=== PATIENT | female | born 1975 | race Caucasian/White ===

== ENCOUNTER 2018-12-13 07:47 | Inpatient (IN) ==
[2018-12-13] MEDS ORDERED: Ondansetron 4 MG/2 ML VIAL IVP ONE (07:57)
[2018-12-13] MEDS ORDERED: 0.9 % Sodium Chloride 1,000 ML IVC ONE (07:57)
--- NOTE | 2018-12-13 07:58 | Emergency Department Note ---
Disposition Clinical Impression: Diabetic ketoacidosis associated with type 1 diabetes mellitus Disposition: Admitted As Inpatient Condition: Good General Adult HPI - General Chief complaint: ED Nausea/Vomiting/Diarrhea Stated complaint: vomiting,high blood sugar Time Seen by Provider: 12/13/18 07:54 Source: patient Limitations: no limitations - History of Present Illness Pain Scale: 0 - Related Data Home Medications Medication Instructions Recorded Confirmed ALPRAZolam [Xanax 1 MG Tablet] 1 mg PO TID PRN 12/13/18 12/13/18 Atorvastatin [Lipitor] 40 mg PO HS 12/13/18 12/13/18 BuPROPion XL (24 HR) [Wellbutrin 150 mg PO DAILY 12/13/18 12/13/18 XL] Citalopram [CeleXA] 40 mg PO HS 12/13/18 12/13/18 Gabapentin [Neurontin] 800 mg PO QID 12/13/18 12/13/18 Insulin ASPART [NovoLOG] 0 units CONT 12/13/18 12/13/18 Allergies Allergy/AdvReac Type Severity Reaction Status Date / Time No Known Allergies Allergy Verified 12/13/18 08:06 Past Medical History - Past Medical History Medical history: Reports: diabetes, hyperlipidemia Psychiatric history: Reports: anxiety, depression, panic disorder - Social History Smoking Status: Current every day smoker Smokeless Tobacco Status: No Alcohol use: Reports: none Drug use: Reports: none Physical Exam - General Limitations: no limitations General appearance: alert, appears intoxicated Course Vital Signs Temperature 97.6 F 12/13/18 07:50 Pulse Rate 114 12/13/18 07:50 Respiratory Rate 18 12/13/18 07:50 Blood Pressure 110/64 12/13/18 07:50 O2 Sat by Pulse Oximetry 97 12/13/18 07:50 Temperature 98.4 F 12/13/18 15:26 Pulse Rate 82 12/13/18 16:08 Respiratory Rate 18 12/13/18 16:08 Blood Pressure 113/69 12/13/18 16:08 O2 Sat by Pulse Oximetry 96 12/13/18 16:08 Oxygen Delivery Oxygen Delivery Room Air Medical Decision Making - Lab Data Result diagrams: 12/13/18 08:30 12/13/18 11:52 Lab Results 12/13/18 12/13/18 12/13/18 Range/Units 08:30 08:30 08:30 WBC 23.3 H (4.3-11.1) K/mcL RBC 4.54 (3.82-4.97) M/mcL Hgb 14.8 (11.5-15.4) g/dL Hct 43.8 (35.3-44.9) % MCV 96.5 (83.0-100.0) fL MCH 32.6 (28.0-33.3) pg MCHC 33.8 (31.6-35.5) g/dL RDW 14.4 (11.5-14.5) % Plt Count 241 (140-400) K/mcL MPV 9.3 L (9.4-12.4) fL Immature Gran % 1.0 (0-4) % Seg Neutrophils % 86.0 % Lymphocytes % 2.9 % Monocytes % 9.9 % Eosinophils % 0.0 % Basophils % 0.2 % Neutrophils # 20.1 H (1.6-8.9) K/mcL Lymphocytes # 0.7 (0.6-4.6) K/mcL Monocytes # 2.3 H (0.0-1.3) K/mcL Eosinophils # 0.0 (0.0-0.6) K/mcL Basophils # 0.0 (0.0-0.2) K/mcL VBG pH (7.32-7.42) pH Units VBG pCO2 (41-51) mmHg VBG pO2 (25-50) mmHg VBG HCO3 (21-27) mEq/L Sodium 127 L (136-145) mEq/L Potassium 4.4 (3.5-5.1) mEq/L Chloride 93 L (98-107) mEq/L Carbon Dioxide 13 L (23-29) mEq/L BUN 12 (6-20) mg/dL Creatinine 1.04 (0.60-1.20) mg/dL Est GFR ( Amer) > 60 (> 60) Est GFR (Non-Af Amer) 58 L (> 60) BUN/Creatinine Ratio 12 (6-26) Glucose 519 H* (70-105) mg/dL Calculated Osmolality 287 (280-300) Lactic Acid (0.5-2.2) mmol/L Calcium 9.1 (8.6-10.3) mg/dL Total Bilirubin 0.6 (0.3-1.0) mg/dL AST 25 (13-39) Units/L ALT 18 (7-52) Units/L Alkaline Phosphatase 101 (34-104) Units/L Serum Total Protein 7.3 (6.4-8.9) g/dL Albumin 4.0 (3.5-5.7) g/dL Globulin 3.3 (2.4-3.5) g/dL Albumin/Globulin Ratio 1.2 (1.1-2.2) Lipase 5 L (11-82) Units/L Beta-Hydroxybutyric Acd > 2.00 H (0.02-0.27) mmol/L Urine Color (Yellow) Urine Clarity (Clear) Urine pH (5.0-8.0) pH Units Ur Specific [place] (1.010-1.025) Urine Protein (Neg-Trace) mg/dL Urine Glucose (UA) (Normal) mg/dL Urine Ketones (Negative) mg/dL Urine Blood (Negative) Urine Nitrite (Negative) Urine Bilirubin (Negative) Urine Urobilinogen (Normal) mg/dL Ur Leukocyte Esterase (Negative) Urine Microscopic RBC (0-3) per hpf Urine Microscopic WBC Ur Squamous Epith Cells (None-Few) per lpf Urine Test (Negative) Urine Opiates Screen (Cqsgcj=905) ng/mL Ur Barbiturates Screen (Ncnswy=819) ng/mL Ur Phencyclidine Scrn (Cutoff=25) ng/mL Ur Amphetamines Screen (Dzznnc=7685) ng/mL U Benzodiazepines Scrn (Pieiqn=888) ng/mL Urine Cocaine Screen (Cutoff= 300) ng/mL U Marijuana (THC) Screen (Cutoff = 50) ng/mL Ur Drug Screen Interp 12/13/18 12/13/18 12/13/18 Range/Units 08:48 08:48 08:48 WBC (4.3-11.1) K/mcL RBC (3.82-4.97) M/mcL Hgb (11.5-15.4) g/dL Hct (35.3-44.9) % MCV (83.0-100.0) fL MCH (28.0-33.3) pg MCHC (31.6-35.5) g/dL RDW (11.5-14.5) % Plt Count (140-400) K/mcL MPV (9.4-12.4) fL Immature Gran % (0-4) % Seg Neutrophils % % Lymphocytes % % Monocytes % % Eosinophils % % Basophils % % Neutrophils # (1.6-8.9) K/mcL Lymphocytes # (0.6-4.6) K/mcL Monocytes # (0.0-1.3) K/mcL Eosinophils # (0.0-0.6) K/mcL Basophils # (0.0-0.2) K/mcL VBG pH (7.32-7.42) pH Units VBG pCO2 (41-51) mmHg VBG pO2 (25-50) mmHg VBG HCO3 (21-27) mEq/L Sodium (136-145) mEq/L Potassium (3.5-5.1) mEq/L Chloride (98-107) mEq/L Carbon Dioxide (23-29) mEq/L BUN (6-20) mg/dL Creatinine (0.60-1.20) mg/dL Est GFR ( Amer) (> 60) Est GFR (Non-Af Amer) (> 60) BUN/Creatinine Ratio (6-26) Glucose (70-105) mg/dL Calculated Osmolality (280-300) Lactic Acid (0.5-2.2) mmol/L Calcium (8.6-10.3) mg/dL Total Bilirubin (0.3-1.0) mg/dL AST (13-39) Units/L ALT (7-52) Units/L Alkaline Phosphatase (34-104) Units/L Serum Total Protein (6.4-8.9) g/dL Albumin (3.5-5.7) g/dL Globulin (2.4-3.5) g/dL Albumin/Globulin Ratio (1.1-2.2) Lipase (11-82) Units/L Beta-Hydroxybutyric Acd (0.02-0.27) mmol/L Urine Color Yellow (Yellow) Urine Clarity Clear (Clear) Urine pH 5.5 (5.0-8.0) pH Units Ur Specific [place] 1.026 H (1.010-1.025) Urine Protein 30 H (Neg-Trace) mg/dL Urine Glucose (UA) >=1000 H (Normal) mg/dL Urine Ketones >=160 H (Negative) mg/dL Urine Blood Large H (Negative) Urine Nitrite Negative (Negative) Urine Bilirubin Negative (Negative) Urine Urobilinogen Normal (Normal) mg/dL Ur Leukocyte Esterase Negative (Negative) Urine Microscopic RBC 15-30 H (0-3) per hpf Urine Microscopic WBC Test Not Performed Ur Squamous Epith Cells Few (None-Few) per lpf Urine Test Negative (Negative) Urine Opiates Screen Negative (Pxnxfr=057) ng/mL Ur Barbiturates Screen Negative (Vrkjjd=169) ng/mL Ur Phencyclidine Scrn Negative (Cutoff=25) ng/mL Ur Amphetamines Screen Negative (Voetsz=4183) ng/mL U Benzodiazepines Scrn Negative (Rmsbge=305) ng/mL Urine Cocaine Screen Negative (Cutoff= 300) ng/mL U Marijuana (THC) Screen Positive H (Cutoff = 50) ng/mL Ur Drug Screen Interp See Below 12/13/18 12/13/18 12/13/18 Range/Units 09:00 11:52 11:52 WBC (4.3-11.1) K/mcL RBC (3.82-4.97) M/mcL Hgb (11.5-15.4) g/dL Hct (35.3-44.9) % MCV (83.0-100.0) fL MCH (28.0-33.3) pg MCHC (31.6-35.5) g/dL RDW (11.5-14.5) % Plt Count (140-400) K/mcL MPV (9.4-12.4) fL Immature Gran % (0-4) % Seg Neutrophils % % Lymphocytes % % Monocytes % % Eosinophils % % Basophils % % Neutrophils # (1.6-8.9) K/mcL Lymphocytes # (0.6-4.6) K/mcL Monocytes # (0.0-1.3) K/mcL Eosinophils # (0.0-0.6) K/mcL Basophils # (0.0-0.2) K/mcL VBG pH 7.37 (7.32-7.42) pH Units VBG pCO2 24 L (41-51) mmHg VBG pO2 145 H (25-50) mmHg VBG HCO3 14 L (21-27) mEq/L Sodium 129 L (136-145) mEq/L Potassium 3.7 (3.5-5.1) mEq/L Chloride 102 (98-107) mEq/L Carbon Dioxide 15 L (23-29) mEq/L BUN 12 (6-20) mg/dL Creatinine 0.85 (0.60-1.20) mg/dL Est GFR ( Amer) > 60 (> 60) Est GFR (Non-Af Amer) > 60 (> 60) BUN/Creatinine Ratio 14 (6-26) Glucose 338 H (70-105) mg/dL Calculated Osmolality 281 (280-300) Lactic Acid 0.8 (0.5-2.2) mmol/L Calcium 7.8 L (8.6-10.3) mg/dL Total Bilirubin 0.3 (0.3-1.0) mg/dL AST 17 (13-39) Units/L ALT 15 (7-52) Units/L Alkaline Phosphatase 82 (34-104) Units/L Serum Total Protein 6.0 L (6.4-8.9) g/dL Albumin 3.3 L (3.5-5.7) g/dL Globulin 2.7 (2.4-3.5) g/dL Albumin/Globulin Ratio 1.2 (1.1-2.2) Lipase (11-82) Units/L Beta-Hydroxybutyric Acd (0.02-0.27) mmol/L Urine Color (Yellow) Urine Clarity (Clear) Urine pH (5.0-8.0) pH Units Ur Specific [place] (1.010-1.025) Urine Protein (Neg-Trace) mg/dL Urine Glucose (UA) (Normal) mg/dL Urine Ketones (Negative) mg/dL Urine Blood (Negative) Urine Nitrite (Negative) Urine Bilirubin (Negative) Urine Urobilinogen (Normal) mg/dL Ur Leukocyte Esterase (Negative) Urine Microscopic RBC (0-3) per hpf Urine Microscopic WBC Ur Squamous Epith Cells (None-Few) per lpf Urine Test (Negative) Urine Opiates Screen (Xqcgod=285) ng/mL Ur Barbiturates Screen (Dimial=770) ng/mL Ur Phencyclidine Scrn (Cutoff=25) ng/mL Ur Amphetamines Screen (Wojibn=7584) ng/mL U Benzodiazepines Scrn (Tkeoyv=932) ng/mL Urine Cocaine Screen (Cutoff= 300) ng/mL U Marijuana (THC) Screen (Cutoff = 50) ng/mL Ur Drug Screen Interp Critical Care Time Critical Care Time: Yes Total Critical Care Time: 30 Attestation: The high probability of a clinically significant, sudden or life threatening deterioration of the [] system(s) required my full and direct attention, intervention and personal management. The aggregate critical care time was [] minutes. This time is in addition to time spent performing reported procedures but includes the following: [] Data Review and interpretation [] Patient assessment and monitoring of vital signs [] Documentation [] Medication orders and management Attestation Statement - Attestation Attestation: I examined this patient and my medical decision-making was reviewed with the Resident Physician. I agree with the documented findings, disposition and treatment plan as described except to the extent set forth below. Edhu-go-ordu time provided Patient arrives complaining of nausea and vomiting for the past 2 days. She is a known type I diabetic with an insulin pump. Prehospital blood sugar was in the 400s. The patient denies having frequent bouts of DKA. She was able to ambulate to the treatment area and appears mildly uncomfortable upon arrival
--- NOTE | 2018-12-13 08:35 | Emergency Department Note ---
Disposition Clinical Impression: Diabetic ketoacidosis associated with type 1 diabetes mellitus Qualifiers: Diabetes mellitus complication detail: without coma Qualified Code(s): E10.10 - Type 1 diabetes mellitus with ketoacidosis without coma Disposition: Admitted As Inpatient Condition: Good Referrals: Trey Duenas MD [Primary Care Provider] - Forms: ED Satisfaction Letter General Adult HPI - General Chief complaint: ED Nausea/Vomiting/Diarrhea Stated complaint: vomiting,high blood sugar Time Seen by Provider: 12/13/18 07:54 Source: patient Limitations: no limitations Nursing Notes Reviewed: Yes Vital Signs Reviewed: Yes - History of Present Illness HPI Narrative: Patient's a 43-year-old female with history of type 1 diabetes on insulin pump who presents emergency department with complaints of nausea, vomiting and diarrhea. She states this is been ongoing for the past 3 days with nausea and vomiting and her diarrhea started this morning. She notes she has had upper respiratory congestion with intermittent cough for the past week. She notes increased urinary frequency. She otherwise denies any chest pain, shortness of breath, abdominal pain, hematuria, dysuria. Pain Scale: 0 - Related Data Allergies Allergy/AdvReac Type Severity Reaction Status Date / Time No Known Allergies Allergy Verified 12/13/18 08:06 All systems ED: reviewed and negative except as stated. Review of Systems: As Per HPI Past Medical History - Past Medical History Medical history: Reports: diabetes, hyperlipidemia Psychiatric history: Reports: anxiety, depression, panic disorder - Social History Smoking Status: Current every day smoker Smokeless Tobacco Status: No Alcohol use: Reports: none Drug use: Reports: none Physical Exam General: Conversant. No apparent distress. Follow commands. Appears stated age. Appears uncomfortable, not actively vomiting Neck: No JVD. Trachea midline. Neck supple. Eyes: PERRL. No scleral icterus. HENT: Normocephalic and atraumatic. Dry mucus membranes. Cardiovascular: Regular rate and rhythm. Normal S1 and S2. No murmurs appreciated. Normal capillary refill. Extremities well perfused with 2+ distal pulses bilaterally. No edema. Pulmonary: Normal and equal breath sounds bilaterally, anteriorly and posteriorly. No wheezes, rales, or rhonchi. Not in respiratory distress. Speaks in full sentences. Abdomen: Soft, nondistended, and tontender. No bruits or masses. No guarding. Neuro: Alert and oriented x3. No slurred speech. No focal deficits noted. Skin: No rashes noted on visualized skin. Musculoskeletal: No bony abnormalities visualized. Moves all extremities. Psych: Normal mood. Pleasant. Makes appropriate eye contact. - General Limitations: no limitations General appearance: alert, in no apparent distress Course Vital Signs Temperature 97.6 F 12/13/18 07:50 Pulse Rate 114 12/13/18 07:50 Respiratory Rate 18 12/13/18 07:50 Blood Pressure 110/64 12/13/18 07:50 O2 Sat by Pulse Oximetry 97 12/13/18 07:50 Temperature 97.6 F 12/13/18 07:50 Pulse Rate 92 12/13/18 13:09 Respiratory Rate 18 12/13/18 13:09 Blood Pressure 98/62 12/13/18 13:09 O2 Sat by Pulse Oximetry 97 12/13/18 13:09 Oxygen Delivery Oxygen Delivery Room Air Medical Decision Making - MDM Narrative Medical decision making narrative: 43-year-old female who presents the emergency department with nausea, vomiting and diarrhea. She is a type I diabetic. On initial assessment patient is nauseated and tachycardic. She appears dry. Laboratory was for DKA obtained. The patient has slight leukocytosis which is likely result of her vomiting. Otherwise her BMP shows glucose of 519, beta hydroxybutyrate greater than 2, chloride of 93, carbon dioxide of 13. She does have an anion gap of 21. Patient started on normal saline with 20 mEq potassium. 0.1 units per kilogram insulin drip initiated. Discussed findings with on-call hospitalist, Dr. Irving who agrees with plan for admission. Discussed case with on-call hospitalist. Patient agrees with and understands course of treatment plan including plan for admission. All questions answered. - Medical Records Medical records reviewed: Yes I reviewed the patient's medical records. - Lab Data Lab results reviewed: Yes I reviewed the patient's lab results. Result diagrams: 12/13/18 08:30 12/13/18 11:52 Lab Results 12/13/18 12/13/18 12/13/18 Range/Units 08:30 08:30 08:30 WBC 23.3 H (4.3-11.1) K/mcL RBC 4.54 (3.82-4.97) M/mcL Hgb 14.8 (11.5-15.4) g/dL Hct 43.8 (35.3-44.9) % MCV 96.5 (83.0-100.0) fL MCH 32.6 (28.0-33.3) pg MCHC 33.8 (31.6-35.5) g/dL RDW 14.4 (11.5-14.5) % Plt Count 241 (140-400) K/mcL MPV 9.3 L (9.4-12.4) fL Immature Gran % 1.0 (0-4) % Seg Neutrophils % 86.0 % Lymphocytes % 2.9 % Monocytes % 9.9 % Eosinophils % 0.0 % Basophils % 0.2 % Neutrophils # 20.1 H (1.6-8.9) K/mcL Lymphocytes # 0.7 (0.6-4.6) K/mcL Monocytes # 2.3 H (0.0-1.3) K/mcL Eosinophils # 0.0 (0.0-0.6) K/mcL Basophils # 0.0 (0.0-0.2) K/mcL VBG pH (7.32-7.42) pH Units VBG pCO2 (41-51) mmHg VBG pO2 (25-50) mmHg VBG HCO3 (21-27) mEq/L Sodium 127 L (136-145) mEq/L Potassium 4.4 (3.5-5.1) mEq/L Chloride 93 L (98-107) mEq/L Carbon Dioxide 13 L (23-29) mEq/L BUN 12 (6-20) mg/dL Creatinine 1.04 (0.60-1.20) mg/dL Est GFR ( Amer) > 60 (> 60) Est GFR (Non-Af Amer) 58 L (> 60) BUN/Creatinine Ratio 12 (6-26) Glucose 519 H* (70-105) mg/dL Calculated Osmolality 287 (280-300) Lactic Acid (0.5-2.2) mmol/L Calcium 9.1 (8.6-10.3) mg/dL Total Bilirubin 0.6 (0.3-1.0) mg/dL AST 25 (13-39) Units/L ALT 18 (7-52) Units/L Alkaline Phosphatase 101 (34-104) Units/L Serum Total Protein 7.3 (6.4-8.9) g/dL Albumin 4.0 (3.5-5.7) g/dL Globulin 3.3 (2.4-3.5) g/dL Albumin/Globulin Ratio 1.2 (1.1-2.2) Lipase 5 L (11-82) Units/L Beta-Hydroxybutyric Acd > 2.00 H (0.02-0.27) mmol/L Urine Color (Yellow) Urine Clarity (Clear) Urine pH (5.0-8.0) pH Units Ur Specific [place] (1.010-1.025) Urine Protein (Neg-Trace) mg/dL Urine Glucose (UA) (Normal) mg/dL Urine Ketones (Negative) mg/dL Urine Blood (Negative) Urine Nitrite (Negative) Urine Bilirubin (Negative) Urine Urobilinogen (Normal) mg/dL Ur Leukocyte Esterase (Negative) Urine Microscopic RBC (0-3) per hpf Urine Microscopic WBC Ur Squamous Epith Cells (None-Few) per lpf Urine Test (Negative) Urine Opiates Screen (Zhqocn=587) ng/mL Ur Barbiturates Screen (Sksads=880) ng/mL Ur Phencyclidine Scrn (Cutoff=25) ng/mL Ur Amphetamines Screen (Yafnhb=1207) ng/mL U Benzodiazepines Scrn (Ojaftr=501) ng/mL Urine Cocaine Screen (Cutoff= 300) ng/mL U Marijuana (THC) Screen (Cutoff = 50) ng/mL Ur Drug Screen Interp 12/13/18 12/13/18 12/13/18 Range/Units 08:48 08:48 08:48 WBC (4.3-11.1) K/mcL RBC (3.82-4.97) M/mcL Hgb (11.5-15.4) g/dL Hct (35.3-44.9) % MCV (83.0-100.0) fL MCH (28.0-33.3) pg MCHC (31.6-35.5) g/dL RDW (11.5-14.5) % Plt Count (140-400) K/mcL MPV (9.4-12.4) fL Immature Gran % (0-4) % Seg Neutrophils % % Lymphocytes % % Monocytes % % Eosinophils % % Basophils % % Neutrophils # (1.6-8.9) K/mcL Lymphocytes # (0.6-4.6) K/mcL Monocytes # (0.0-1.3) K/mcL Eosinophils # (0.0-0.6) K/mcL Basophils # (0.0-0.2) K/mcL VBG pH (7.32-7.42) pH Units VBG pCO2 (41-51) mmHg VBG pO2 (25-50) mmHg VBG HCO3 (21-27) mEq/L Sodium (136-145) mEq/L Potassium (3.5-5.1) mEq/L Chloride (98-107) mEq/L Carbon Dioxide (23-29) mEq/L BUN (6-20) mg/dL Creatinine (0.60-1.20) mg/dL Est GFR ( Amer) (> 60) Est GFR (Non-Af Amer) (> 60) BUN/Creatinine Ratio (6-26) Glucose (70-105) mg/dL Calculated Osmolality (280-300) Lactic Acid (0.5-2.2) mmol/L Calcium (8.6-10.3) mg/dL Total Bilirubin (0.3-1.0) mg/dL AST (13-39) Units/L ALT (7-52) Units/L Alkaline Phosphatase (34-104) Units/L Serum Total Protein (6.4-8.9) g/dL Albumin (3.5-5.7) g/dL Globulin (2.4-3.5) g/dL Albumin/Globulin Ratio (1.1-2.2) Lipase (11-82) Units/L Beta-Hydroxybutyric Acd (0.02-0.27) mmol/L Urine Color Yellow (Yellow) Urine Clarity Clear (Clear) Urine pH 5.5 (5.0-8.0) pH Units Ur Specific [place] 1.026 H (1.010-1.025) Urine Protein 30 H (Neg-Trace) mg/dL Urine Glucose (UA) >=1000 H (Normal) mg/dL Urine Ketones >=160 H (Negative) mg/dL Urine Blood Large H (Negative) Urine Nitrite Negative (Negative) Urine Bilirubin Negative (Negative) Urine Urobilinogen Normal (Normal) mg/dL Ur Leukocyte Esterase Negative (Negative) Urine Microscopic RBC 15-30 H (0-3) per hpf Urine Microscopic WBC Test Not Performed Ur Squamous Epith Cells Few (None-Few) per lpf Urine Test Negative (Negative) Urine Opiates Screen Negative (Gkxdcf=783) ng/mL Ur Barbiturates Screen Negative (Jkhsqs=417) ng/mL Ur Phencyclidine Scrn Negative (Cutoff=25) ng/mL Ur Amphetamines Screen Negative (Yddyav=5772) ng/mL U Benzodiazepines Scrn Negative (Onlkgh=010) ng/mL Urine Cocaine Screen Negative (Cutoff= 300) ng/mL U Marijuana (THC) Screen Positive H (Cutoff = 50) ng/mL Ur Drug Screen Interp See Below 12/13/18 12/13/18 12/13/18 Range/Units 09:00 11:52 11:52 WBC (4.3-11.1) K/mcL RBC (3.82-4.97) M/mcL Hgb (11.5-15.4) g/dL Hct (35.3-44.9) % MCV (83.0-100.0) fL MCH (28.0-33.3) pg MCHC (31.6-35.5) g/dL RDW (11.5-14.5) % Plt Count (140-400) K/mcL MPV (9.4-12.4) fL Immature Gran % (0-4) % Seg Neutrophils % % Lymphocytes % % Monocytes % % Eosinophils % % Basophils % % Neutrophils # (1.6-8.9) K/mcL Lymphocytes # (0.6-4.6) K/mcL Monocytes # (0.0-1.3) K/mcL Eosinophils # (0.0-0.6) K/mcL Basophils # (0.0-0.2) K/mcL VBG pH 7.37 (7.32-7.42) pH Units VBG pCO2 24 L (41-51) mmHg VBG pO2 145 H (25-50) mmHg VBG HCO3 14 L (21-27) mEq/L Sodium 129 L (136-145) mEq/L Potassium 3.7 (3.5-5.1) mEq/L Chloride 102 (98-107) mEq/L Carbon Dioxide 15 L (23-29) mEq/L BUN 12 (6-20) mg/dL Creatinine 0.85 (0.60-1.20) mg/dL Est GFR ( Amer) > 60 (> 60) Est GFR (Non-Af Amer) > 60 (> 60) BUN/Creatinine Ratio 14 (6-26) Glucose 338 H (70-105) mg/dL Calculated Osmolality 281 (280-300) Lactic Acid 0.8 (0.5-2.2) mmol/L Calcium 7.8 L (8.6-10.3) mg/dL Total Bilirubin 0.3 (0.3-1.0) mg/dL AST 17 (13-39) Units/L ALT 15 (7-52) Units/L Alkaline Phosphatase 82 (34-104) Units/L Serum Total Protein 6.0 L (6.4-8.9) g/dL Albumin 3.3 L (3.5-5.7) g/dL Globulin 2.7 (2.4-3.5) g/dL Albumin/Globulin Ratio 1.2 (1.1-2.2) Lipase (11-82) Units/L Beta-Hydroxybutyric Acd (0.02-0.27) mmol/L Urine Color (Yellow) Urine Clarity (Clear) Urine pH (5.0-8.0) pH Units Ur Specific [place] (1.010-1.025) Urine Protein (Neg-Trace) mg/dL Urine Glucose (UA) (Normal) mg/dL Urine Ketones (Negative) mg/dL Urine Blood (Negative) Urine Nitrite (Negative) Urine Bilirubin (Negative) Urine Urobilinogen (Normal) mg/dL Ur Leukocyte Esterase (Negative) Urine Microscopic RBC (0-3) per hpf Urine Microscopic WBC Ur Squamous Epith Cells (None-Few) per lpf Urine Test (Negative) Urine Opiates Screen (Jfyqho=926) ng/mL Ur Barbiturates Screen (Jvoaml=169) ng/mL Ur Phencyclidine Scrn (Cutoff=25) ng/mL Ur Amphetamines Screen (Qvchsz=7685) ng/mL U Benzodiazepines Scrn (Utqhtn=178) ng/mL Urine Cocaine Screen (Cutoff= 300) ng/mL U Marijuana (THC) Screen (Cutoff = 50) ng/mL Ur Drug Screen Interp - Radiology Data Radiology results reviewed: Yes I reviewed the patient's radiology results. Chest X-Ray 12/13/18 09:12 IMPRESSION: No acute cardiopulmonary findings. D/ / Arleen Cook MD / Arleen Cook MD Interpreting Provider: Arleen Cook MD
[2018-12-13 08:48] LABS: Basophils % 0.2 %; Hematocrit 43.8 % (35.3-44.9); Hemoglobin 14.8 g/dL (11.5-15.4); Lymphocytes # 0.7 K/mcL (0.6-4.6); Lymphocytes % 2.9 %; Mean Corpuscular HGB Conc 33.8 g/dL (31.6-35.5); Mean Corpuscular Hemoglobin 32.6 pg (28.0-33.3); Mean Corpuscular Volume 96.5 fL (83.0-100.0); Mean Platelet Volume 9.3 fL (9.4-12.4); Monocytes # 2.3 K/mcL (0.0-1.3); Monocytes % 9.9 %; Neutrophils # 20.1 K/mcL (1.6-8.9); Platelet Count 241 K/mcL (140-400); Red Blood Count 4.54 M/mcL (3.82-4.97); Red Cell Distribution Width 14.4 % (11.5-14.5)
[2018-12-13 09:03] LABS: VBG HCO3 14 mEq/L (21-27); VBG PCO2 24 mmHg (41-51); VBG PH 7.37 pH Units (7.32-7.42); VBG PO2 145 mmHg (25-50)
[2018-12-13 09:17] LABS: Alanine Aminotransferase 18 Units/L (7-52); Albumin/Globulin Ratio 1.2 (1.1-2.2); Alkaline Phosphatase 101 Units/L (34-104); Aspartate Amino Transferase 25 Units/L (13-39); BUN/Creatinine Ratio 12 (6-26); Bilirubin,Total 0.6 mg/dL (0.3-1.0); Blood Urea Nitrogen 12 mg/dL (6-20); Calcium 9.1 mg/dL (8.6-10.3); Carbon Dioxide 13 mEq/L (23-29); Chloride 93 mEq/L (98-107); Globulin 3.3 g/dL (2.4-3.5); Glucose 519 mg/dL (70-105); Lipase 5 Units/L (11-82); Osmolality,Calculated 287 (280-300); Potassium 4.4 mEq/L (3.5-5.1); Sodium 127 mEq/L (136-145); Total Protein 7.3 g/dL (6.4-8.9); eGFR For Non-African Americans 58 (> 60)
[2018-12-13 09:18] LABS: Bilirubin,Urine Negative (Negative); Blood,Urine Large (Negative); Clarity,Urine Clear (Clear); Color,Urine Yellow (Yellow); Glucose,Urine (UA) >=1000 mg/dL (Normal); Ketones,Urine >=160 mg/dL (Negative); Leukocyte Esterase,Urine Negative (Negative); Nitrite,Urine Negative (Negative); PH,Urine 5.5 pH Units (5.0-8.0); Protein,Urine 30 mg/dL (Neg-Trace); Specific Gravity,Urine 1.026 (1.010-1.025); Urobilinogen,Urine Normal (Normal)
[2018-12-13] MEDS ORDERED: *HR* Dextrose 50 % in Water (Syg) 50 ML SYRINGE IVP PRN ×3 (09:23→20:56)
[2018-12-13] MEDS ORDERED: 0.9 % Sodium Chloride 1,000 ML IVC STA (09:26)
[2018-12-13] MEDS ORDERED: 0.9 % Sodium Chloride w KCl 20 MEQ/1,000 ML MLS IVC SCH (09:30)
[2018-12-13] MEDS ORDERED: Insulin Human Regular 100 UNIT in 0.9 % Sodium Chloride 100 ML IVC SCH (09:30)
[2018-12-13 09:33] LABS: RBC,Urine 15-30 per hpf (0-3); Squamous Epithelial Cell,Urine Few per lpf (None-Few)
[2018-12-13] MEDS ORDERED: Ondansetron 4 MG/2 ML VIAL IVP PRN (10:28)
[2018-12-13] MEDS ORDERED: OXYCODONE Oral CONC 10 MG/0.5 ML ORAL.SYG SL PRN (10:28)
[2018-12-13] MEDS ORDERED: Naloxone 0.4 MG/ML INJ IVP PRN (10:28)
[2018-12-13] MEDS ORDERED: Insulin Regular, Human 100 UNIT/ML IV PRN (10:32)
--- NOTE | 2018-12-13 10:54 | Internal Med History&Physical ---
Date of Encounter: 12/13/18 Time of Encounter: 10:51 Internal Medicine - H&P: HPI Chief complaint: nausea Plans for Post Hospital Care: Home History of present illness: Ms. Mark is a 43 year old female with PMH type 1 diabetes presented to [facility] on 12/13/18 with complaints of neausea. She was found to be in DKA and was hospitalized for further work-up and treatment. Information obtained from chart review and patient report. Patient says she has been nauseated over the last 2-3 days. Denied ABD pain. Had 2 episodes non-bloody loose stool day of arrival. No aggravating or alleviating factors. Says she is unable to keep anything down. Reports comlnaice with insulin pump and pump is functioning correctly. Denied sick contacts. Treated for URI approx 3-4 weeks ago. Past Med Surg Social Fam HX - Past Medical History Medical history: diabetes, hyperlipidemia Psychiatric history: anxiety, depression, panic disorder - Past Surgical History Additional surgical history: ovarian cyst removed - Social History Smoking Status: Current every day smoker Smokeless Tobacco Status: No Alcohol use: none Drug use: none - Additional Family History Additional family history: reviewed and noncontributory per patient Internal Medicine - H&P: Meds Albuterol Sulfate [Albuterol Inhaler] 1 puff IH Q4H #1 inhaler 11/05/15 [Rx] Azithromycin [Azithromycin 6-Tab Pack] 250 mg PO DAILY #6 tab 11/05/15 [Rx] Benzonatate [Tessalon] 200 mg PO TID #30 capsule 11/05/15 [Rx] Promethazine/Codeine [Phenergan/Codeine] 5 ml PO Q6HR #240 ml 11/05/15 [Rx] Allergy/AdvReac Type Severity Reaction Status Date / Time No Known Allergies Allergy Verified 12/13/18 08:06 All Systems PM: A 10-system review of systems was performed and is negative for pertinent findings except as documented above in the HPI. Review of systems: a 14 point review of systems was completed and negative unless otherwise noted in HPI - Constitutional Vitals: Temp Pulse Resp BP Pulse Ox 97.6 F 107 18 92/50 98 12/13/18 07:50 12/13/18 10:05 12/13/18 10:05 12/13/18 10:05 12/13/18 10:05 General appearance: Present: A&O X 3 Exam: . - Head Head exam: Present: atraumatic, normocephalic - Eye Eye exam: Present: PERRL, conjuntiva pink, sclera anicteric Pupils: Present: PERRL - Neck Neck exam general surgery: Present: supple, trachea midline. Absent: lymphadenopathy - Respiratory Respiratory exam: Present: CTAB. Absent: accessory muscle use, rales, rhonchi, wheezes - Cardiovascular Cardiovascular exam: Present: RRR, +S1, +S2. Absent: diastolic murmur, gallop, rubs, systolic murmur - GI/Abdominal GI/Abdominal exam: Present: normal bowel sounds, soft, no peritoneal signs. Absent: distended, tenderness - Extremities Exam Extremities exam: Present: warm, radial pulses palpable and symmetrical. Absent: calf tenderness, cyanotic, pedal edema - Neurological Exam Neurological exam: Present: CN II-XII intact, oriented X3, no focal deficits. Absent: pronater drift, facial droop, speech deficit - Skin Skin exam: Present: dry, intact Internal Med - H&P Results - Labs CBC & Chem 7: 12/13/18 08:30 12/13/18 08:30 Labs: Short CBC 12/13/18 Range/Units 08:30 WBC 23.3 H (4.3-11.1) K/mcL Hgb 14.8 (11.5-15.4) g/dL Hct 43.8 (35.3-44.9) % Plt Count 241 (140-400) K/mcL Neutrophils # 20.1 H (1.6-8.9) K/mcL BMP 12/13/18 08:30 Sodium 127 L Potassium 4.4 Chloride 93 L Carbon Dioxide 13 L BUN 12 Creatinine 1.04 Glucose 519 H* Calcium 9.1 Liver Function 12/13/18 Range/Units 08:30 Total Bilirubin 0.6 (0.3-1.0) mg/dL AST 25 (13-39) Units/L ALT 18 (7-52) Units/L Alkaline Phosphatase 101 (34-104) Units/L Albumin 4.0 (3.5-5.7) g/dL Urine 12/13/18 Range/Units 08:48 Urine Color Yellow (Yellow) Urine Clarity Clear (Clear) Urine pH 5.5 (5.0-8.0) pH Units Ur Specific [place] 1.026 H (1.010-1.025) Urine Protein 30 H (Neg-Trace) mg/dL Urine Glucose (UA) >=1000 H (Normal) mg/dL - ABG Interpretation ABG results: 12/13/18 09:00 VBG pH 7.37 VBG pCO2 24 L VBG pO2 145 H VBG HCO3 14 L - Impressions ITS Impressions Chest X-Ray 12/13/18 09:12 IMPRESSION: No acute cardiopulmonary findings. D/ / Arleen Cook MD / Arleen Cook MD Interpreting Provider: Arleen Cook MD - Assessment and Plan (1) DKA, type 1 Current Visit: Yes Status: Acute Assessment and plan: has known type 1 diabetes with insulin pump. Blood sugars >500 and beta- hydroxybutyric elevated. UA with ketones. Holding insulin pump. Cont insulin gtt, monitor electrolytes/blood sugar. DKA protocol. Hgb A1c pending Qualifiers: Diabetes mellitus complication detail: without coma Qualified Code(s): E10.10 - Type 1 diabetes mellitus with ketoacidosis without coma (2) Nausea Current Visit: Yes Status: Acute Assessment and plan: with associated loose stool. Possible gastroenteritis. Recent ATB use 3-4 weeks ago. Check stool for c.diff. NPO. PRN zofran. Supportive acre for now. (3) Leukocytosis Current Visit: Yes Status: Acute Assessment and plan: WBC 23K. No obvious infectious source. UA without evidence of UTI. CXR unremarkable. Lactic acid not drawn in ED. Possibly reactive with dehydration/DKA however patient did report loose stool. Blood cx's, lactic acid and stool for c.diff pending Qualifiers: Leukocytosis type: unspecified Qualified Code(s): D72.829 - Elevated white blood cell count, unspecified (4) Hyponatremia Current Visit: Yes Status: Acute Assessment and plan: Na 127; neurologically intact. Pseudohyponatremia secondary to hyperglycemia. Corrected Na 134 (5) Chronic pain Current Visit: Yes Status: Acute Assessment and plan: per hx. Reported taking percocet at home. OARRS reviewed on 12/13/18 and no active rx for percocet. Add lidoderm patch Qualifiers: Chronic pain type: chronic pain syndrome Qualified Code(s): G89.4 - Chronic pain syndrome (6) DVT prophylaxis Current Visit: Yes Status: Acute Assessment and plan: lovenox - Time Spent With Patient Total time spent is greater than 50% in coordination of care (as documented) at patient's floor/unit and/or counseling patient:
[2018-12-13 12:25] LABS: Alanine Aminotransferase 15 Units/L (7-52); Albumin 3.3 g/dL (3.5-5.7); Albumin/Globulin Ratio 1.2 (1.1-2.2); Alkaline Phosphatase 82 Units/L (34-104); Aspartate Amino Transferase 17 Units/L (13-39); BUN/Creatinine Ratio 14 (6-26); Bilirubin,Total 0.3 mg/dL (0.3-1.0); Blood Urea Nitrogen 12 mg/dL (6-20); Calcium 7.8 mg/dL (8.6-10.3); Carbon Dioxide 15 mEq/L (23-29); Chloride 102 mEq/L (98-107); Globulin 2.7 g/dL (2.4-3.5); Glucose 338 mg/dL (70-105); Osmolality,Calculated 281 (280-300); Potassium 3.7 mEq/L (3.5-5.1); Sodium 129 mEq/L (136-145); eGFR For Non-African Americans > 60 (> 60)
[2018-12-13 12:44] LABS: Amphetamine Screen,Urine Negative ng/mL (Cutoff=1000); Barbiturate Screen,Urine Negative ng/mL (Cutoff=200); Benzodiazepines Screen,Urine Negative ng/mL (Cutoff=200); Cannabinoid Screen,Urine Positive ng/mL (Cutoff = 50); Cocaine Screen,Urine Negative ng/mL (Cutoff= 300); Opiate Screen,Urine Negative ng/mL (Cutoff=300); Phencyclidine Screen,Urine Negative ng/mL (Cutoff=25)
[2018-12-13] MEDS ORDERED: *HR* OxyCODONE/APAP 5/325 TABLET PO ONE (14:08)
[2018-12-13] MEDS ORDERED: ALPRAZolam 0.5 MG TABLET PO ONE (14:08)
[2018-12-13] MEDS: D5% in 0.45% NACL w KCl 20 MEQ/1,000 ML MLS IVC PRN ×2 (14:36→19:21)
[2018-12-13 17:02] LABS: Alanine Aminotransferase 16 Units/L (7-52); Albumin 3.3 g/dL (3.5-5.7); Albumin/Globulin Ratio 1.4 (1.1-2.2); Alkaline Phosphatase 75 Units/L (34-104); Aspartate Amino Transferase 19 Units/L (13-39); BUN/Creatinine Ratio 13 (6-26); Bilirubin,Total 0.3 mg/dL (0.3-1.0); Blood Urea Nitrogen 10 mg/dL (6-20); Calcium 7.8 mg/dL (8.6-10.3); Carbon Dioxide 19 mEq/L (23-29); Chloride 105 mEq/L (98-107); Globulin 2.4 g/dL (2.4-3.5); Glucose 233 mg/dL (70-105); Osmolality,Calculated 281 (280-300); Potassium 3.9 mEq/L (3.5-5.1); Sodium 132 mEq/L (136-145); Total Protein 5.7 g/dL (6.4-8.9); eGFR For Non-African Americans > 60 (> 60)
[2018-12-13] MEDS ORDERED: Insulin DETEMIR 100 UNIT/ML X5UNITS SQ ONE (18:26)
[2018-12-13] MEDS: ALPRAZolam 1 MG TABLET PO PRN (19:25)
[2018-12-13 20:37] LABS: Alanine Aminotransferase 27 Units/L (7-52); Albumin 3.3 g/dL (3.5-5.7); Albumin/Globulin Ratio 1.3 (1.1-2.2); Alkaline Phosphatase 92 Units/L (34-104); Aspartate Amino Transferase 40 Units/L (13-39); BUN/Creatinine Ratio 12 (6-26); Bilirubin,Total 0.4 mg/dL (0.3-1.0); Blood Urea Nitrogen 9 mg/dL (6-20); Calcium 7.9 mg/dL (8.6-10.3); Carbon Dioxide 18 mEq/L (23-29); Chloride 106 mEq/L (98-107); Globulin 2.5 g/dL (2.4-3.5); Glucose 292 mg/dL (70-105); Osmolality,Calculated 285 (280-300); Potassium 4.1 mEq/L (3.5-5.1); Sodium 133 mEq/L (136-145); Total Protein 5.8 g/dL (6.4-8.9); eGFR For Non-African Americans > 60 (> 60)
[2018-12-13] MEDS ORDERED: Dextrose 4 GM Chewable Tablets PO PRN (20:56)
[2018-12-13] MEDS ORDERED: Dextrose Gel 15 GM/37.5 ML TUBE PO PRN ×2 (20:56)
[2018-12-13] MEDS ORDERED: D5% in Water 1,000 ML IVC PRN (20:56)
[2018-12-13] MEDS ORDERED: Ringers Solution, Lactated 1,000 ML IVC SCH (21:00)
[2018-12-13] MEDS: *HR* Promethazine 25 MG/ML VIAL IVP PRN (21:28)
[2018-12-13] MEDS: Gabapentin 400 MG CAPSULE PO SCH (22:03)
[2018-12-13] MEDS: Acetaminophen 325 MG TABLET PO PRN (22:03)
[2018-12-13] MEDS: OXYCODONE Oral CONC 10 MG/0.5 ML ORAL.SYG SL PRN (22:03)
[2018-12-13] MEDS: Insulin LISPRO 300 UNITS/3 ML VIAL SQ SCH (23:27)
[2018-12-14 00:28] LABS: Basophils % 0.2 %; Eosinophils % 0.1 %; Hematocrit 35.4 % (35.3-44.9); Hemoglobin 12.5 g/dL (11.5-15.4); Immature Granulocytes % 0.5 % (0-4); Lymphocytes # 1.2 K/mcL (0.6-4.6); Lymphocytes % 6.7 %; Mean Corpuscular HGB Conc 35.3 g/dL (31.6-35.5); Mean Corpuscular Hemoglobin 33.2 pg (28.0-33.3); Mean Corpuscular Volume 93.9 fL (83.0-100.0); Mean Platelet Volume 9.3 fL (9.4-12.4); Monocytes # 3.1 K/mcL (0.0-1.3); Monocytes % 17.5 %; Neutrophils # 13.2 K/mcL (1.6-8.9); Platelet Count 219 K/mcL (140-400); Red Blood Count 3.77 M/mcL (3.82-4.97); Red Cell Distribution Width 13.9 % (11.5-14.5)
[2018-12-14 00:41] LABS: Alanine Aminotransferase 43 Units/L (7-52); Albumin 3.2 g/dL (3.5-5.7); Albumin/Globulin Ratio 1.3 (1.1-2.2); Alkaline Phosphatase 99 Units/L (34-104); Aspartate Amino Transferase 69 Units/L (13-39); BUN/Creatinine Ratio 10 (6-26); Bilirubin,Total 0.4 mg/dL (0.3-1.0); Blood Urea Nitrogen 8 mg/dL (6-20); Calcium 8.2 mg/dL (8.6-10.3); Carbon Dioxide 19 mEq/L (23-29); Chloride 108 mEq/L (98-107); Globulin 2.4 g/dL (2.4-3.5); Glucose 229 mg/dL (70-105); Osmolality,Calculated 286 (280-300); Sodium 135 mEq/L (136-145); Total Protein 5.6 g/dL (6.4-8.9); eGFR For Non-African Americans > 60 (> 60)
[2018-12-14 00:42] LABS: Alanine Aminotransferase 41 Units/L (7-52); Albumin 3.2 g/dL (3.5-5.7); Albumin/Globulin Ratio 1.3 (1.1-2.2); Alkaline Phosphatase 99 Units/L (34-104); Aspartate Amino Transferase 68 Units/L (13-39); BUN/Creatinine Ratio 10 (6-26); Bilirubin,Total 0.4 mg/dL (0.3-1.0); Blood Urea Nitrogen 8 mg/dL (6-20); Calcium 8.2 mg/dL (8.6-10.3); Carbon Dioxide 19 mEq/L (23-29); Chloride 109 mEq/L (98-107); Globulin 2.5 g/dL (2.4-3.5); Glucose 229 mg/dL (70-105); Osmolality,Calculated 286 (280-300); Sodium 135 mEq/L (136-145); Total Protein 5.7 g/dL (6.4-8.9); eGFR For Non-African Americans > 60 (> 60)
[2018-12-14] MEDS: Acetaminophen 325 MG TABLET PO PRN ×2 (04:41→21:57)
[2018-12-14] MEDS: *HR* Enoxaparin 40 MG/0.4 ML SYRINGE SQ SCH (05:12)
[2018-12-14] MEDS: OXYCODONE Oral CONC 10 MG/0.5 ML ORAL.SYG SL PRN ×3 (05:13→17:54)
[2018-12-14] MEDS: BuPROPion XL (24 HR) 150 MG TABLET PO SCH (08:07)
[2018-12-14] MEDS: Gabapentin 400 MG CAPSULE PO SCH ×4 (08:07→19:43)
[2018-12-14] MEDS: Insulin LISPRO 300 UNITS/3 ML VIAL SQ SCH ×4 (08:12→19:43)
[2018-12-14 09:00] LABS: Alanine Aminotransferase 42 Units/L (7-52); Albumin 3.2 g/dL (3.5-5.7); Albumin/Globulin Ratio 1.3 (1.1-2.2); Alkaline Phosphatase 94 Units/L (34-104); Aspartate Amino Transferase 54 Units/L (13-39); BUN/Creatinine Ratio 12 (6-26); Bilirubin,Total 0.4 mg/dL (0.3-1.0); Blood Urea Nitrogen 9 mg/dL (6-20); Calcium 8.3 mg/dL (8.6-10.3); Carbon Dioxide 22 mEq/L (23-29); Chloride 104 mEq/L (98-107); Globulin 2.4 g/dL (2.4-3.5); Glucose 278 mg/dL (70-105); Osmolality,Calculated 281 (280-300); Potassium 3.7 mEq/L (3.5-5.1); Sodium 131 mEq/L (136-145); Total Protein 5.6 g/dL (6.4-8.9); eGFR For Non-African Americans > 60 (> 60)
[2018-12-14 09:23] LABS: Estimated Average Glucose 226 mg/dl; Hemoglobin A1C 9.5 %
--- NOTE | 2018-12-14 11:27 | Internal Med Progress Note ---
Hospitalist Progress Note - Encounter Date of Encounter: 12/14/18 Time of Encounter: 11:25 - Subjective Interval History: Pt denies fever or chills. She reports body aches and nausea. She denies N/V or diarrhea. She denies sore throat or abdominal pain. - Exam Vitals: Temp Pulse Resp BP Pulse Ox 98.5 F 84 18 106/56 97 12/14/18 07:41 12/14/18 07:41 12/14/18 07:41 12/14/18 07:41 12/14/18 07:41 Exam: General appearance: Present: A&O X 3 Exam: Head exam: Present: atraumatic, normocephalic Eye exam: Present: PERRL, conjuntiva pink, sclera anicteric Pupils: Present: PERRL Neck exam general surgery: Present: supple, trachea midline. Absent: lymphadenopathy Respiratory exam: Present: CTAB. Absent: accessory muscle use, rales, rhonchi, wheezes Cardiovascular exam: Present: RRR, +S1, +S2. Absent: diastolic murmur, gallop, rubs, systolic murmur GI/Abdominal exam: Present: normal bowel sounds, soft, no peritoneal signs. Absent: distended, tenderness Extremities exam: Present: warm, radial pulses palpable and symmetrical. Absent: calf tenderness, cyanotic, pedal edema Neurological exam: Present: CN II-XII intact, oriented X3, no focal deficits. Absent: pronater drift, facial droop, speech deficit Skin exam: Present: dry, intact - Assessment and Plan (1) DKA, type 1 Current Visit: Yes Status: Acute Assessment and Plan: Pt has known type 1 diabetes with insulin pump diagnosed at 29 years old. Blood sugars >500 and beta-hydroxybutyric elevated. UA with ketones. Holding insulin pump. Cont insulin gtt, monitor electrolytes/blood sugar. DKA protocol. Hgb A1c 9.5. (2) Chronic pain Current Visit: Yes Status: Acute Assessment and Plan: per hx. Reported taking percocet at home. OARRS reviewed on 12/13/18 and no active rx for percocet. Add lidoderm patch (3) Leukocytosis Current Visit: Yes Status: Acute Assessment and Plan: WBC 23K. No obvious infectious source. UA without evidence of UTI. CXR u nremarkable. Lactic acid 0.8. Possibly reactive with dehydration/DKA however patient did report loose stool. Blood cx's, stool for c.diff pending. Checking respiratory panel as well due to complaint of myalgia. (4) Hyponatremia Current Visit: Yes Status: Acute Assessment and Plan: Na 127 but improving. Repeat Na 131; neurologically intact. Pseudohyponatremia secondary to hyperglycemia. (5) Nausea Current Visit: Yes Status: Acute Assessment and Plan: with associated loose stool. Possible gastroenteritis. Recent ATB use 3-4 weeks ago. Check stool for c.diff. NPO. PRN zofran. Supportive acre for now. DVT Prophylaxis: Lovenox - Summary of Assessment and Plan Summary of Assessment and Plan: History of present illness: Alex Mark is a 43 year old female with PMH type 1 diabetes presented to [facility] on 12/13/18 with complaints of neausea. She was found to be in DKA and was hospitalized for further work-up and treatment. Information obtained from chart review and patient report. Patient says she has been nauseated over the last 2-3 days. Denied ABD pain. Had 2 episodes non-bloody loose stool day of arrival. No aggravating or alleviating factors. Says she is unable to keep anything down. Reports comlnaice with insulin pump and pump is functioning correctly. Denied sick contacts. Treated for URI approx 3-4 weeks ago. - Time Spent with Patient Total time spent is greater than 50% in coordination of care (as documented) at patient's floor/unit and/or counseling patient: less than 15 minutes Plan of Care Discussed with: patient Internal Medicine: Result - Labs CBC & Chem 7: 12/14/18 00:11 12/14/18 08:09 Labs: Short CBC 12/14/18 Range/Units 00:11 WBC 17.6 H (4.3-11.1) K/mcL Hgb 12.5 D (11.5-15.4) g/dL Hct 35.4 (35.3-44.9) % Plt Count 219 (140-400) K/mcL Neutrophils # 13.2 H (1.6-8.9) K/mcL BMP 12/13/18 12/13/18 12/13/18 11:52 15:48 20:01 Sodium 129 L 132 L 133 L Potassium 3.7 3.9 4.1 Chloride 102 105 106 Carbon Dioxide 15 L 19 L 18 L BUN 12 10 9 Creatinine 0.85 0.80 0.78 Glucose 338 H 233 H 292 H Calcium 7.8 L 7.8 L 7.9 L 12/14/18 12/14/18 12/14/18 00:11 00:11 08:09 Sodium 135 L 135 L 131 L Potassium 4.0 4.0 3.7 Chloride 109 H 108 H 104 Carbon Dioxide 19 L 19 L 22 L BUN 8 8 9 Creatinine 0.80 0.80 0.75 Glucose 229 H 229 H 278 H Calcium 8.2 L 8.2 L 8.3 L Liver Function 12/13/18 12/13/18 12/13/18 Range/Units 11:52 15:48 20:01 Total Bilirubin 0.3 0.3 0.4 (0.3-1.0) mg/dL AST 17 19 40 H (13-39) Units/L ALT 15 16 27 (7-52) Units/L Alkaline Phosphatase 82 75 92 (34-104) Units/L Albumin 3.3 L 3.3 L 3.3 L (3.5-5.7) g/dL 12/14/18 12/14/18 12/14/18 Range/Units 00:11 00:11 08:09 Total Bilirubin 0.4 0.4 0.4 (0.3-1.0) mg/dL AST 68 H 69 H 54 H (13-39) Units/L ALT 41 43 42 (7-52) Units/L Alkaline Phosphatase 99 99 94 (34-104) Units/L Albumin 3.2 L 3.2 L 3.2 L (3.5-5.7) g/dL Consult Discharge Plan - Plan Referrals: Trey Duenas MD [Primary Care Provider] - (1) DKA, type 1 Qualifiers: Diabetes mellitus complication detail: without coma Qualified Code(s): E10.10 - Type 1 diabetes mellitus with ketoacidosis without coma (2) Chronic pain Qualifiers: Chronic pain type: chronic pain syndrome Qualified Code(s): G89.4 - Chronic pain syndrome (3) Leukocytosis Qualifiers: Leukocytosis type: unspecified Qualified Code(s): D72.829 - Elevated white blood cell count, unspecified
[2018-12-14] MEDS: ALPRAZolam 1 MG TABLET PO PRN (12:00)
[2018-12-14 13:28] LABS: Adenovirus Not Detected (Not Detect); Bordetella Pertussis Not Detected (Not Detect); Chlamydophila pneumoniae Not Detected (Not Detect); Coronavirus 229E Not Detected (Not Detect); Coronavirus HKU1 Not Detected (Not Detect); Coronavirus NL63 Not Detected (Not Detect); Coronavirus OC43 Not Detected (Not Detect); Human Metapneumovirus Not Detected (Not Detect); Human Rhinovirus/Enterovirus Not Detected (Not Detect); Influenza A Subtype 2009 H1 Not Detected (Not Detect); Influenza A Untypeable Not Detected (Not Detect); Influenza B Not Detected (Not Detect); Mycoplasma pneumoniae Not Detected (Not Detect); Parainfluenza Virus 1 Not Detected (Not Detect); Parainfluenza Virus 2 Not Detected (Not Detect); Parainfluenza Virus 3 Not Detected (Not Detect); Parainfluenza Virus 4 Not Detected (Not Detect); Respiratory Syncytial Virus Not Detected (Not Detect)
[2018-12-14 14:44] LABS: Alanine Aminotransferase 96 Units/L (7-52); Albumin 3.2 g/dL (3.5-5.7); Albumin/Globulin Ratio 1.3 (1.1-2.2); Alkaline Phosphatase 127 Units/L (34-104); Aspartate Amino Transferase 165 Units/L (13-39); BUN/Creatinine Ratio 11 (6-26); Bilirubin,Total 0.3 mg/dL (0.3-1.0); Blood Urea Nitrogen 9 mg/dL (6-20); Carbon Dioxide 22 mEq/L (23-29); Chloride 99 mEq/L (98-107); Globulin 2.5 g/dL (2.4-3.5); Glucose 283 mg/dL (70-105); Osmolality,Calculated 273 (280-300); Potassium 3.6 mEq/L (3.5-5.1); Sodium 127 mEq/L (136-145); Total Protein 5.7 g/dL (6.4-8.9); eGFR For Non-African Americans > 60 (> 60)
[2018-12-14 18:36] LABS: Alanine Aminotransferase 93 Units/L (7-52); Albumin 3.1 g/dL (3.5-5.7); Albumin/Globulin Ratio 1.2 (1.1-2.2); Alkaline Phosphatase 117 Units/L (34-104); Aspartate Amino Transferase 132 Units/L (13-39); BUN/Creatinine Ratio 10 (6-26); Bilirubin,Total 0.4 mg/dL (0.3-1.0); Blood Urea Nitrogen 9 mg/dL (6-20); Carbon Dioxide 20 mEq/L (23-29); Chloride 99 mEq/L (98-107); Globulin 2.5 g/dL (2.4-3.5); Glucose 320 mg/dL (70-105); Osmolality,Calculated 275 (280-300); Potassium 3.3 mEq/L (3.5-5.1); Sodium 127 mEq/L (136-145); Total Protein 5.6 g/dL (6.4-8.9); eGFR For Non-African Americans > 60 (> 60)
[2018-12-15] MEDS: OXYCODONE Oral CONC 10 MG/0.5 ML ORAL.SYG SL PRN ×4 (00:13→23:42)
[2018-12-15] MEDS: *HR* Enoxaparin 40 MG/0.4 ML SYRINGE SQ SCH (04:36)
[2018-12-15] MEDS: ALPRAZolam 1 MG TABLET PO PRN ×2 (04:49→21:03)
[2018-12-15 07:37] LABS: Basophils % 0.3 %; Hematocrit 38.5 % (35.3-44.9); Hemoglobin 13.1 g/dL (11.5-15.4); Immature Granulocytes % 0.8 % (0-4); Lymphocytes # 0.9 K/mcL (0.6-4.6); Lymphocytes % 6.1 %; Mean Corpuscular Hemoglobin 31.8 pg (28.0-33.3); Mean Corpuscular Volume 93.4 fL (83.0-100.0); Mean Platelet Volume 9.7 fL (9.4-12.4); Monocytes # 2.4 K/mcL (0.0-1.3); Monocytes % 16.7 %; Neutrophils # 11.1 K/mcL (1.6-8.9); Platelet Count 198 K/mcL (140-400); Red Blood Count 4.12 M/mcL (3.82-4.97); Red Cell Distribution Width 14.2 % (11.5-14.5); Segmented Neutrophils % 76.1 %
[2018-12-15 07:52] LABS: BUN/Creatinine Ratio 13 (6-26); Blood Urea Nitrogen 12 mg/dL (6-20); Calcium 8.2 mg/dL (8.6-10.3); Carbon Dioxide 12 mEq/L (23-29); Chloride 97 mEq/L (98-107); Glucose 461 mg/dL (70-105); Osmolality,Calculated 288 (280-300); Potassium 3.8 mEq/L (3.5-5.1); Sodium 129 mEq/L (136-145); eGFR For Non-African Americans > 60 (> 60)
[2018-12-15] MEDS: Gabapentin 400 MG CAPSULE PO SCH ×4 (08:02→20:47)
[2018-12-15] MEDS: BuPROPion XL (24 HR) 150 MG TABLET PO SCH (08:02)
[2018-12-15] MEDS: Insulin LISPRO 300 UNITS/3 ML VIAL SQ SCH (08:02)
[2018-12-15] MEDS: Acetaminophen 325 MG TABLET PO PRN ×2 (08:02→20:46)
[2018-12-15] MEDS ORDERED: Isovue-370 500 ML BOTTLE IVP ONE ×2 (10:00→10:04)
[2018-12-15] MEDS ORDERED: 0.9 % Sodium Chloride w KCl 20 MEQ/1,000 ML MLS IVC SCH ×2 (10:30→13:00)
--- NOTE | 2018-12-15 10:36 | Internal Med Progress Note ---
Hospitalist Progress Note - Encounter Date of Encounter: 12/15/18 Time of Encounter: 10:36 - Subjective Interval History: Pt looking diaphoretic and sickly this am. at beside states she had been sweaty all night. She once again stated she felt fine yesterday but during the night developed chills and sweats. Pt once again denies abdominal pain. She denies chest pain or SOB. She denies urinary frequency, urgency, dysuria. She denies flank pian. She denies redness pain itching or swelling of any area of her skin. - Exam Vitals: Temp Pulse Resp BP Pulse Ox 100.9 F H 111 20 119/70 96 12/15/18 07:02 12/15/18 07:02 12/15/18 07:02 12/15/18 07:02 12/15/18 07:02 Exam: General appearance: Present: A&O X 3 Exam: Head exam: Present: atraumatic, normocephalic Eye exam: Present: PERRL, conjuntiva pink, sclera anicteric Pupils: Present: PERRL Neck exam general surgery: Present: supple, trachea midline. Absent: lymphadenopathy Respiratory exam: Present: CTAB. Absent: accessory muscle use, rales, rhonchi, wheezes Cardiovascular exam: Present: RRR, +S1, +S2. Absent: diastolic murmur, gallop, rubs, systolic murmur GI/Abdominal exam: Present: normal bowel sounds, soft, no peritoneal signs. Absent: distended, tenderness Extremities exam: Present: warm, radial pulses palpable and symmetrical. Absent: calf tenderness, cyanotic, pedal edema Neurological exam: Present: CN II-XII intact, oriented X3, no focal deficits. Absent: pronater drift, facial droop, speech deficit Skin exam: Present: dry, intact - Assessment and Plan (1) DKA, type 1 Current Visit: Yes Status: Acute Assessment and Plan: Pt has known type 1 diabetes with insulin pump diagnosed at 29 years old. Blood sugars >500 and beta-hydroxybutyric elevated. UA with ketones. Holding insulin pump. Cont insulin gtt, monitor electrolytes/blood sugar. DKA protocol initiated on admission. Hgb A1c 9.5. Pt on SSI and was given Levemir 15 units x one 12/13/18. Pt will be resumed on insulin gtt for now due to glucose being in 400's. Hyperglycemia likely made worse by infectious process. Pt febrile and WBC elevated. infectious work up in progress. Will place on empiric anitbiotic for now. (2) Chronic pain Current Visit: Yes Status: Acute Assessment and Plan: per hx. Reported taking percocet at home. OARRS reviewed on 12/13/18 and no active rx for percocet. Add lidoderm patch (3) Leukocytosis Current Visit: Yes Status: Acute Assessment and Plan: WBC 23K. No obvious infectious source. UA without evidence of UTI. CXR unremarkable. Lactic acid 0.8. Possibly reactive with dehydration/DKA however patient did report loose stool. Blood cx's incubating and stool for c.diff pending. Respiratory panel ordered due to myalgia was negative. CT chest reviewed and no documentation of PNA. CT abdome reporting acute cholecystitis vs pyelonephritis. Starting on Zosyn for now. Will check lipase and abdominal US as well. CT abd/pelvis CT/CT abd pelvis w iv no oral IMPRESSION: Heterogeneous enhancement of the kidneys raises the question of pyelonephritis Pericholecystic fluid may be due to the ascites or acute cholecystitis. Correlate clinically. Ovoid intermediate density left adnexa. This is indeterminate. Correlate with ultrasound as this does not meet criteria for a simple cyst. Wall thickening in the urinary bladder suggesting age-indeterminate cystitis. (4) Hyponatremia Current Visit: Yes Status: Acute Assessment and Plan: Na 127 but improving. Repeat Na 133; neurologically intact. Pseudohyponatremia secondary to hyperglycemia. (5) Nausea Current Visit: Yes Status: Acute Assessment and Plan: with associated loose stool. Possible gastroenteritis. Recent ATB use 3-4 weeks ago. Checking stool for c.diff and awaiting sample from pt. NPO. PRN zofran. Supportive care for now. DVT Prophylaxis: Lovenox - Summary of Assessment and Plan Summary of Assessment and Plan: History of present illness: Alex Kelsea Ms. Mark is a 43 year old female with PMH type 1 diabetes presented to [facility] on 12/13/18 with complaints of neausea. She was found to be in DKA and was hospitalized for further work-up and treatment. Information obtained from chart review and patient report. Patient says she has been nauseated over the last 2-3 days. Denied ABD pain. Had 2 episodes non-bloody loose stool day of arrival. No aggravating or alleviating factors. Says she is unable to keep anything down. Reports comlnaice with insulin pump and pump is functioning correctly. Denied sick contacts. Treated for URI approx 3-4 weeks ago. - Time Spent with Patient Total time spent is greater than 50% in coordination of care (as documented) at patient's floor/unit and/or counseling patient: less than 15 minutes Plan of Care Discussed with: patient Internal Medicine: Result - Labs CBC & Chem 7: 12/15/18 07:17 12/15/18 07:17 Labs: Short CBC 12/15/18 Range/Units 07:17 WBC 14.6 H (4.3-11.1) K/mcL Hgb 13.1 (11.5-15.4) g/dL Hct 38.5 (35.3-44.9) % Plt Count 198 (140-400) K/mcL Neutrophils # 11.1 H (1.6-8.9) K/mcL BMP 12/14/18 12/14/18 12/15/18 13:46 17:27 07:17 Sodium 127 L 127 L 129 L Potassium 3.6 3.3 L 3.8 Chloride 99 99 97 L Carbon Dioxide 22 L 20 L 12 L BUN 9 9 12 Creatinine 0.81 0.88 0.92 Glucose 283 H 320 H 461 H Calcium 8.0 L 8.0 L 8.2 L Liver Function 12/14/18 12/14/18 Range/Units 13:46 17:27 Total Bilirubin 0.3 0.4 (0.3-1.0) mg/dL AST 165 H 132 H (13-39) Units/L ALT 96 H 93 H (7-52) Units/L Alkaline Phosphatase 127 H 117 H (34-104) Units/L Albumin 3.2 L 3.1 L (3.5-5.7) g/dL Consult Discharge Plan - Plan Referrals: Trey Duenas MD [Primary Care Provider] - (1) DKA, type 1 Qualifiers: Diabetes mellitus complication detail: without coma Qualified Code(s): E10.10 - Type 1 diabetes mellitus with ketoacidosis without coma (2) Chronic pain Qualifiers: Chronic pain type: chronic pain syndrome Qualified Code(s): G89.4 - Chronic pain syndrome (3) Leukocytosis Qualifiers: Leukocytosis type: unspecified Qualified Code(s): D72.829 - Elevated white blood cell count, unspecified
[2018-12-15] MEDS: Piperacillin/Tazobactam 3.375 GM in 0.9 % Sodium Chloride Mini Bag 100 ML IVPB SCH ×2 (10:40→18:35)
[2018-12-15 10:45] LABS: VBG HCO3 17 mEq/L (21-27); VBG PCO2 32 mmHg (41-51); VBG PH 7.34 pH Units (7.32-7.42); VBG PO2 103 mmHg (25-50)
[2018-12-15] MEDS ORDERED: Levofloxacin 500 MG/100 ML 500 MG/100 ML BAG IVPB SCH (11:00)
[2018-12-15] MEDS ORDERED: Insulin Human Regular 100 UNIT in 0.9 % Sodium Chloride 100 ML IVC SCH ×2 (11:15→13:00)
[2018-12-15] MEDS ORDERED: *HR* Dextrose 50 % in Water (Syg) 50 ML SYRINGE IVP PRN ×2 (11:15→12:50)
[2018-12-15 11:51] LABS: Hepatitis B Surface Antigen Nonreactive (Nonreactive)
[2018-12-15 12:20] LABS: Hepatitis B Core IgM Nonreactive (Nonreactive)
[2018-12-15 12:21] LABS: Hepatitis A Antibody IgM Nonreactive (Nonreactive); Hepatitis C Virus Antibody Nonreactive (Nonreactive)
[2018-12-15] MEDS ORDERED: Insulin Regular, Human 100 UNIT/ML IV PRN (12:50)
[2018-12-15] MEDS ORDERED: D5% in 0.45% NACL 1,000 ML IVC PRN (12:52)
[2018-12-15] MEDS ORDERED: D5% in 0.45% NACL w KCl 20 MEQ/1,000 ML MLS IVC PRN (12:52)
[2018-12-15] MEDS ORDERED: 0.45 % Sodium Chloride w/KCl 20 MEQ/1,000 ML MLS IVC SCH (13:00)
[2018-12-15] MEDS ORDERED: 0.9 % Sodium Chloride 1,000 ML IVC SCH (13:00)
[2018-12-15 13:26] LABS: BUN/Creatinine Ratio 12 (6-26); Blood Urea Nitrogen 10 mg/dL (6-20); Calcium 8.1 mg/dL (8.6-10.3); Carbon Dioxide 18 mEq/L (23-29); Chloride 103 mEq/L (98-107); Glucose 226 mg/dL (70-105); Osmolality,Calculated 282 (280-300); Potassium 3.5 mEq/L (3.5-5.1); Sodium 133 mEq/L (136-145); eGFR For Non-African Americans > 60 (> 60)
[2018-12-15] MEDS: Ibuprofen 400 MG TABLET PO PRN (13:28)
[2018-12-15 15:05] LABS: Bilirubin,Urine Negative (Negative); Blood,Urine Large (Negative); Clarity,Urine Clear (Clear); Color,Urine Yellow (Yellow); Glucose,Urine (UA) 250 mg/dL (Normal); Ketones,Urine 40 mg/dL (Negative); Leukocyte Esterase,Urine Trace (Negative); Nitrite,Urine Negative (Negative); Protein,Urine Trace mg/dL (Neg-Trace); Specific Gravity,Urine 1.019 (1.010-1.025); Urobilinogen,Urine Normal (Normal)
[2018-12-15 15:08] LABS: Bacteria,Urine None Seen per hpf (None-Few); Hyaline Casts,Urine None Seen per lpf (None-Few); RBC,Urine 15-30 per hpf (0-3); Squamous Epithelial Cell,Urine Few per lpf (None-Few); WBC,Urine 0-3 per hpf (0-3)
--- NOTE | 2018-12-15 17:35 | Event Note ---
Date of Encounter: 12/15/18 Time of Encounter: 17:26 14:43 Updated nurse, Mikal Savage, at great length about current medical status. States pt had VBG and ABG ordered. VBG resulted and reviewed. Asked for pt's current glucose from Mikal and he stated last glucose reading was 185. He was advised to have pt resume her insulin pum and to continue with SSI PRN. 14:45 Notified Mikal of pt's CT abd and pelvis results of possible pyelonephritis vs cholecystitis and that abdominal US was ordered. Mikal was also informed that pt was on antibiotic for prophylaxis. 17:00 Mikal was advised on updating his chart for completeness as it was not accurately documenting above information.
[2018-12-15] MEDS ORDERED: 0.9 % Sodium Chloride 500 ML IVC ONE (17:36)
[2018-12-15] MEDS: 0.9 % Sodium Chloride 1,000 ML IVC SCH ×2 (17:45→22:43)
[2018-12-16] MEDS: Piperacillin/Tazobactam 3.375 GM in 0.9 % Sodium Chloride Mini Bag 100 ML IVPB SCH ×3 (03:44→20:19)
[2018-12-16 05:05] LABS: Basophils % 0.2 %; Hematocrit 34.9 % (35.3-44.9); Hemoglobin 11.9 g/dL (11.5-15.4); Immature Granulocytes % 0.6 % (0-4); Lymphocytes # 1.4 K/mcL (0.6-4.6); Lymphocytes % 12.4 %; Mean Corpuscular HGB Conc 34.1 g/dL (31.6-35.5); Mean Corpuscular Hemoglobin 32.1 pg (28.0-33.3); Mean Corpuscular Volume 94.1 fL (83.0-100.0); Mean Platelet Volume 9.7 fL (9.4-12.4); Monocytes # 1.6 K/mcL (0.0-1.3); Monocytes % 14.4 %; Neutrophils # 8.2 K/mcL (1.6-8.9); Platelet Count 209 K/mcL (140-400); Red Blood Count 3.71 M/mcL (3.82-4.97); Red Cell Distribution Width 14.6 % (11.5-14.5); Segmented Neutrophils % 72.4 %
[2018-12-16] MEDS: ALPRAZolam 1 MG TABLET PO PRN ×3 (05:06→20:18)
[2018-12-16] MEDS: Acetaminophen 325 MG TABLET PO PRN (05:06)
[2018-12-16] MEDS: *HR* Enoxaparin 40 MG/0.4 ML SYRINGE SQ SCH (05:06)
[2018-12-16 06:07] LABS: Alanine Aminotransferase 94 Units/L (7-52); Albumin/Globulin Ratio 1.2 (1.1-2.2); Alkaline Phosphatase 117 Units/L (34-104); Aspartate Amino Transferase 74 Units/L (13-39); BUN/Creatinine Ratio 9 (6-26); Bilirubin,Total 0.4 mg/dL (0.3-1.0); Blood Urea Nitrogen 7 mg/dL (6-20); Calcium 7.7 mg/dL (8.6-10.3); Carbon Dioxide 19 mEq/L (23-29); Chloride 102 mEq/L (98-107); Globulin 2.6 g/dL (2.4-3.5); Glucose 207 mg/dL (70-105); Osmolality,Calculated 274 (280-300); Potassium 3.7 mEq/L (3.5-5.1); Sodium 130 mEq/L (136-145); Total Protein 5.6 g/dL (6.4-8.9); eGFR For Non-African Americans > 60 (> 60)
[2018-12-16] MEDS: OXYCODONE Oral CONC 10 MG/0.5 ML ORAL.SYG SL PRN ×3 (08:13→22:55)
[2018-12-16] MEDS: BuPROPion XL (24 HR) 150 MG TABLET PO SCH (08:13)
[2018-12-16] MEDS: Gabapentin 400 MG CAPSULE PO SCH ×4 (08:13→20:18)
[2018-12-16] MEDS: 0.9 % Sodium Chloride 1,000 ML IVC SCH ×2 (08:21→19:53)
[2018-12-16] MEDS: (INSULIN PUMP) SQ SCH (09:45)
[2018-12-16] MEDS ORDERED: D5% in Water 1,000 ML IVC PRN (10:04)
[2018-12-16] MEDS ORDERED: Dextrose 4 GM Chewable Tablets PO PRN ×2 (10:04)
[2018-12-16] MEDS: Insulin LISPRO 300 UNITS/3 ML VIAL SQ SCH ×3 (11:58→20:21)
--- NOTE | 2018-12-16 12:23 | Internal Med Progress Note ---
Hospitalist Progress Note - Encounter Date of Encounter: 12/16/18 Time of Encounter: 12:21 - Subjective Interval History: Pt states " I feel great." Pt denies fever or chills, N/V or diarrhea. Denies chest pain or SOB. She denies abdominal pain. She stated she had left flank discomfort 12/15/18. - Exam Vitals: Temp Pulse Resp BP Pulse Ox 98.4 F 70 18 118/69 99 12/16/18 12:00 12/16/18 12:00 12/16/18 12:00 12/16/18 12:00 12/16/18 12:00 Exam: General appearance: Present: A&O X 3 Exam: Head exam: Present: atraumatic, normocephalic Eye exam: Present: PERRL, conjuntiva pink, sclera anicteric Pupils: Present: PERRL Neck exam general surgery: Present: supple, trachea midline. Absent: lymphadenopathy Respiratory exam: Present: CTAB. Absent: accessory muscle use, rales, rhonchi, wheezes Cardiovascular exam: Present: RRR, +S1, +S2. Absent: diastolic murmur, gallop, rubs, systolic murmur GI/Abdominal exam: Present: normal bowel sounds, soft, no peritoneal signs. Absent: distended, tenderness Extremities exam: Present: warm, radial pulses palpable and symmetrical. Absent: calf tenderness, cyanotic, pedal edema Neurological exam: Present: CN II-XII intact, oriented X3, no focal deficits. Absent: pronater drift, facial droop, speech deficit Skin exam: Present: dry, intact - Assessment and Plan (1) SIRS (systemic inflammatory response syndrome) Current Visit: Yes Status: Acute Assessment and Plan: Pt with leukocytosis on admission. WBC 23K. WBC 23K 12/13/18. No obvious infectious source. UA without evidence of UTI. CXR unremarkable. Lactic acid 0.8. It was initially thought to be possibly reactive with dehydration/DKA however patient did report loose stool on admission. C.diff stool ordered but pt had not been able to give a sample. Blood cx's incubating and stool for c.diff pending as pt has not given a sample. Respiratory panel ordered due to myalgia was negative. CT chest reviewed and no documentation of PNA. CT abdomen reporting acute cholecystitis vs pyelonephritis. Urine culture not shwoing any growth so far. AST 74, ALT 94, Alk phos 117, and Lipase 5 Started on Zosyn for now 12/15/18, though etiology unclear at this time. WBC trending down and pt has been afebrile since 12/15/18 16:18. Abdominal US showed gallbladder sludge as well as thickening of the gallbladder wall and possible acute cholecystitis. NM scan negative for acute cholecystitis, will hold off on consulting surgery for now. Pt's fever resolved. WBC trending down. Will continue Zosyn for now and DC Levaquin. (2) Leukocytosis Current Visit: Yes Status: Acute Assessment and Plan: WBC 23K 12/13/18. No obvious infectious source. UA without evidence of UTI. CXR unremarkable. Lactic acid 0.8. It was initially thought to be possibly reactive with dehydration/DKA however patient did report loose stool. C.diff stool ordered but pt had not been able to give a sample. Blood cx's incubating and stool for c.diff pending as pt has not given a sample. Respiratory panel ordered due to myalgia was negative. CT chest reviewed and no documentation of PNA. CT abdomen reporting acute cholecystitis vs pyelonephritis. Urine culture not shwoing any growth so far. AST 74, ALT 94, Alk phos 117, and Lipase 5 Abdominal US showed gallbladder sludge as well as thickening of the gallbladder wall and possible acute cholecystitis. NM scan negative for acute cholecystitis, will hold off on consulting surgery for now. CT abd/pelvis CT/CT abd pelvis w iv no oral IMPRESSION: Heterogeneous enhancement of the kidneys raises the question of pyelonephritis Pericholecystic fluid may be due to the ascites or acute cholecystitis. Correlate clinically. Ovoid intermediate density left adnexa. This is indeterminate. Correlate with ultrasound as this does not meet criteria for a simple cyst. Wall thickening in the urinary bladder suggesting age-indeterminate cystitis. (3) DKA, type 1 Current Visit: Yes Status: Acute Assessment and Plan: 12/13/18-12/14/18 Pt has known type 1 diabetes with insulin pump diagnosed at 29 years old. Blood sugars >500 and beta-hydroxybutyric elevated. UA with ketones. Holding insulin pump. Cont insulin gtt, monitor electrolytes/blood sugar. DKA protocol initiated on admission. Hgb A1c 9.5. Pt on SSI and was given Levemir 15 units x one 12/13/18. Pt will be resumed on insulin gtt for now due to glucose being in 400's. Hyperglycemia likely made worse by infectious process. Pt febrile and WBC elevated. infectious work up in progress. Will place on empiric anitbiotic with Zosyn and Levaquin for now. 12/15/18 GAP closed and glucose improved. Pt to resumed insulin pump and nurse instructed to continue with SSI. Started on Zosyn for possible cholecytistis and or pyelonephritis. 12/16/09 Pt's fever resolved. WBC trending down. Will continue Zosyn for now and DC Levaquin. Will check NM scan gall bladder and if abnormal consult surgery. (4) Chronic pain Current Visit: Yes Status: Acute Assessment and Plan: per hx. Reported taking percocet at home. OAR[place] reviewed on 12/13/18 and no active rx for percocet. Add lidoderm patch (5) Hyponatremia Current Visit: Yes Status: Acute Assessment and Plan: Na 127 but improving. Repeat Na 130; neurologically intact. Pseudohyponatremia secondary to hyperglycemia. (6) Nausea Current Visit: Yes Status: Acute Assessment and Plan: With associated loose stool. Possible gastroenteritis. Recent ATB use 3-4 weeks ago. Checking stool for c.diff and awaiting sample from pt. NPO. PRN zofran. Supportive care for now. (7) Abnormal urine findings Current Visit: Yes Status: Acute Assessment and Plan: Urine analysis abnormal and urine culture sent. Started on Zosyn 12/14/09. DVT Prophylaxis: Lovenox - Summary of Assessment and Plan Summary of Assessment and Plan: History of present illness: Alex Enamorado Ms. Mark is a 43 year old female with PMH type 1 diabetes presented to [facility] on 12/13/18 with complaints of neausea. She was found to be in DKA and was hospitalized for further work-up and treatment. Information obtained from chart review and patient report. Patient says she has been nauseated over the last 2-3 days. Denied ABD pain. Had 2 episodes non-bloody loose stool day of arrival. No aggravating or alleviating factors. Says she is unable to keep anything down. Reports comlnaice with insulin pump and pump is functioning correctly. Denied sick contacts. Treated for URI approx 3-4 weeks ago. - Time Spent with Patient Total time spent is greater than 50% in coordination of care (as documented) at patient's floor/unit and/or counseling patient: less than 15 minutes Plan of Care Discussed with: patient Internal Medicine: Result - Labs CBC & Chem 7: 12/16/18 04:28 12/16/18 04:28 Labs: Short CBC 12/16/18 Range/Units 04:28 WBC 11.3 H (4.3-11.1) K/mcL Hgb 11.9 (11.5-15.4) g/dL Hct 34.9 L (35.3-44.9) % Plt Count 209 (140-400) K/mcL Neutrophils # 8.2 (1.6-8.9) K/mcL BMP 12/15/18 12/16/18 12:56 04:28 Sodium 133 L 130 L Potassium 3.5 3.7 Chloride 103 102 Carbon Dioxide 18 L 19 L BUN 10 7 Creatinine 0.83 0.76 Glucose 226 H 207 H Calcium 8.1 L 7.7 L Liver Function 12/16/18 Range/Units 04:28 Total Bilirubin 0.4 (0.3-1.0) mg/dL AST 74 H (13-39) Units/L ALT 94 H (7-52) Units/L Alkaline Phosphatase 117 H (34-104) Units/L Albumin 3.0 L (3.5-5.7) g/dL Urine 12/15/18 Range/Units 15:00 Urine Color Yellow (Yellow) Urine Clarity Clear (Clear) Urine pH 6.0 (5.0-8.0) pH Units Ur Specific Mcclave 1.019 (1.010-1.025) Urine Protein Trace (Neg-Trace) mg/dL Urine Glucose (UA) 250 H (Normal) mg/dL - Impressions Impressions Abdomen Ultrasound 12/16/18 08:30 IMPRESSION: 1. Gallbladder sludge as well as thickening of the gallbladder wall. Acute cholecystitis should be considered. 2. Mildly prominent common bile duct measuring 0.65 cm. RECOMMENDATIONS: HIDA scan. D/ / 12/16/2018 09:05:12 Enedina Alas MD / Rosibel Gomes Interpreting Provider: Enedina Alas MD Consult Discharge Plan - Plan Referrals: Trey Duenas MD [Primary Care Provider] - (2) Leukocytosis Qualifiers: Leukocytosis type: unspecified Qualified Code(s): D72.829 - Elevated white blood cell count, unspecified (3) DKA, type 1 Qualifiers: Diabetes mellitus complication detail: without coma Qualified Code(s): E10.10 - Type 1 diabetes mellitus with ketoacidosis without coma (4) Chronic pain Qualifiers: Chronic pain type: chronic pain syndrome Qualified Code(s): G89.4 - Chronic pain syndrome
--- NOTE | 2018-12-16 15:41 | AcuteCare Surgery Consult Note ---
Date of Encounter: 12/16/18 Time of Encounter: 15:40 Assessment and Plan (1) Acute calculous cholecystitis Current Visit: Yes Status: Acute Lap Yolanda plan: Pt diagnosis of acute calculus cholecystitis is discussed. Laparoscopic Cholecystectomy is recommended. Procedure for the surgery, risks and benefits are discussed in detail. Possible known complications for Laparoscopic Cholecystectomy are bleeding, infection, bile duct injury, bile leak, small intestine or stomach injury, stroke, DVT/PE, VT or . Pt understands these risks, which in this case are . Pt wishes to proceed with surgery as soon as possible. Informed consent is obtained. Pt condition is stable. Surgery is scheduled. (2) DKA, type 1 Current Visit: Yes Status: Acute resolved Qualifiers: Diabetes mellitus complication detail: without coma Qualified Code(s): E10.10 - Type 1 diabetes mellitus with ketoacidosis without coma History of Present Illness Consult date: 12/16/18 Reason for consult: gallstones (with acute cholecystitis) Requesting physician: Kelli Torres History of present illness: This 43 y/o female presents to [facility] ED in [facility]. She is usually a well-controlled diabetic however, she presented acutely ill. She reported abdominal and nausea upon her admission. During the course of her hospitalization she was found to have acute calculous cholecystitis. She has been treated with ABX. She is feeling somewhat better this afternoon. She at lunch after her HIDA scan. Past Med Surg Social Fam HX - Past Medical History Medical history: diabetes, hyperlipidemia Additional medical history: anxiety, depression and panic disorder Psychiatric history: anxiety, depression, panic disorder - Past Surgical History Additional surgical history: ovarian cyst removed - Social History Smoking Status: Current every day smoker Smokeless Tobacco Status: No Alcohol use: none Drug use: none Medications and Allergies ALPRAZolam [Xanax 1 MG Tablet] 1 mg PO TID PRN 12/13/18 [History] Atorvastatin [Lipitor] 40 mg PO HS 12/13/18 [History] BuPROPion XL (24 HR) [Wellbutrin XL] 150 mg PO DAILY 12/13/18 [History] Citalopram [CeleXA] 40 mg PO HS 12/13/18 [History] Gabapentin [Neurontin] 800 mg PO QID 12/13/18 [History] Insulin ASPART [NovoLOG] 0 units CONT 12/13/18 [History] Allergy/AdvReac Type Severity Reaction Status Date / Time No Known Allergies Allergy Verified 12/13/18 08:06 Review of Systems All systems PM: The remainder of the systems were reviewed and are negative - Constitutional as per HPI, fatigue, no anorexia, no chills, no fever(s), no headache(s), no night sweats, no weakness - EENT Nose, mouth and throat: dry mouth, no dizziness, no dysphagia, no nasal congestion, no nasal discharge, no sinus pain, no sinus pressure, no sore throat - Cardiovascular no chest pain, no claudication, no diaphoresis, no dyspnea, no edema - Gastrointestinal abdominal pain, belching, bloating, heartburn, nausea, vomiting, no change in bowel habits, no change in stool character, no constipation, no diarrhea - Genitourinary Genitourinary: no difficulty voiding, no dysuria, no urinary urgency - Musculoskeletal back pain, no abnormal gait, no joint swelling, no neck pain - Integumentary dry skin, no pruritus, no rash, no wounds, no jaundice - Neurological no dizziness, no focal weakness, no headache(s), no syncope, no weakness - Psychiatric anxiety, depression - Endocrine fatigue - Hematologic/Lymphatic no easy bleeding, no easy bruising General Surgery Exam Initial Vital Signs Temp Pulse Resp BP Pulse Ox 97.6 F 114 18 110/64 97 12/13/18 07:50 12/13/18 07:50 12/13/18 07:50 12/13/18 07:50 12/13/18 07:50 - General physical appearance well developed, well nourished, no distress. negative: jaundice - Eyes PERRL, normal ocular movement. negative: icteric - ENT normal mucosa. negative: no congestion, nasal discharge - Neck no masses, no lymphadectomy, no venous distension - Respiratory normal respiratory effort, clear to auscultation - Cardiovascular Cardiovascular exam: Present: RRR - Abdomen Abdomen general surgery: Present: bowel sounds present, soft, tender. Absent: guarding, rebound Abdominal Tenderness: Present: RUQ - Genitourinary Present: normal external genitalia - Integumentary Integumentary general surgery: Present: warm and dry - Neurologic Present: CN 2-12 grossly intact, normal coordination - Musculoskeletal Present: normal posture - Psychiatric Psychiatric general surgery: Present: A&Ox3, appropriate Exam Initial Vital Signs Temp Pulse Resp BP Pulse Ox 97.6 F 114 18 110/64 97 12/13/18 07:50 12/13/18 07:50 12/13/18 07:50 12/13/18 07:50 12/13/18 07:50 Results - Labs 12/16/18 04:28 12/16/18 04:28 Abnormal lab results WBC 11.3 K/mcL (4.3-11.1) H 12/16/18 04:28 RBC 3.71 M/mcL (3.82-4.97) L 12/16/18 04:28 Hct 34.9 % (35.3-44.9) L 12/16/18 04:28 RDW 14.6 % (11.5-14.5) H 12/16/18 04:28 Monocytes # 1.6 K/mcL (0.0-1.3) H 12/16/18 04:28 VBG pCO2 32 mmHg (41-51) L 12/15/18 10:42 VBG pO2 103 mmHg (25-50) H 12/15/18 10:42 VBG HCO3 17 mEq/L (21-27) L 12/15/18 10:42 Sodium 130 mEq/L (136-145) L 12/16/18 04:28 Carbon Dioxide 19 mEq/L (23-29) L 12/16/18 04:28 Glucose 207 mg/dL (70-105) H 12/16/18 04:28 POC Glucose 211 mg/dL (70-99) H 12/16/18 07:37 Hemoglobin A1c 9.5 % (-5.6) H 12/14/18 00:11 Calculated Osmolality 274 (280-300) L 12/16/18 04:28 Calcium 7.7 mg/dL (8.6-10.3) L 12/16/18 04:28 AST 74 Units/L (13-39) H 12/16/18 04:28 ALT 94 Units/L (7-52) H 12/16/18 04:28 Alkaline Phosphatase 117 Units/L (34-104) H 12/16/18 04:28 Serum Total Protein 5.6 g/dL (6.4-8.9) L 12/16/18 04:28 Albumin 3.0 g/dL (3.5-5.7) L 12/16/18 04:28 Lipase 5 Units/L (11-82) L 12/13/18 08:30 Beta-Hydroxybutyric Acd 1.99 mmol/L (0.02-0.27) H 12/15/18 10:18 Urine Glucose (UA) 250 mg/dL (Normal) H 12/15/18 15:00 Urine Ketones 40 mg/dL (Negative) H 12/15/18 15:00 Urine Blood Large (Negative) H 12/15/18 15:00 Ur Leukocyte Esterase Trace (Negative) H 12/15/18 15:00 Urine Microscopic RBC 15-30 per hpf (0-3) H 12/15/18 15:00 Ur Culture Indicated? YES (NO) A 12/15/18 15:00 U Marijuana (THC) Screen Positive ng/mL (Cutoff = 50) H 12/13/18 08:48 Diabetes panel 12/16/18 Range/Units 04:28 Sodium 130 L (136-145) mEq/L Potassium 3.7 (3.5-5.1) mEq/L Chloride 102 (98-107) mEq/L Carbon Dioxide 19 L (23-29) mEq/L BUN 7 (6-20) mg/dL Creatinine 0.76 (0.60-1.20) mg/dL Glucose 207 H (70-105) mg/dL Calcium 7.7 L (8.6-10.3) mg/dL AST 74 H (13-39) Units/L ALT 94 H (7-52) Units/L Alkaline Phosphatase 117 H (34-104) Units/L Albumin 3.0 L (3.5-5.7) g/dL Calcium panel 12/16/18 Range/Units 04:28 Calcium 7.7 L (8.6-10.3) mg/dL Albumin 3.0 L (3.5-5.7) g/dL Pituitary panel 12/16/18 Range/Units 04:28 Sodium 130 L (136-145) mEq/L Potassium 3.7 (3.5-5.1) mEq/L Chloride 102 (98-107) mEq/L Carbon Dioxide 19 L (23-29) mEq/L BUN 7 (6-20) mg/dL Creatinine 0.76 (0.60-1.20) mg/dL Glucose 207 H (70-105) mg/dL Calcium 7.7 L (8.6-10.3) mg/dL Adrenal panel 12/16/18 Range/Units 04:28 Sodium 130 L (136-145) mEq/L Potassium 3.7 (3.5-5.1) mEq/L Chloride 102 (98-107) mEq/L Carbon Dioxide 19 L (23-29) mEq/L BUN 7 (6-20) mg/dL Creatinine 0.76 (0.60-1.20) mg/dL Glucose 207 H (70-105) mg/dL Calcium 7.7 L (8.6-10.3) mg/dL Total Bilirubin 0.4 (0.3-1.0) mg/dL AST 74 H (13-39) Units/L ALT 94 H (7-52) Units/L Alkaline Phosphatase 117 H (34-104) Units/L Albumin 3.0 L (3.5-5.7) g/dL All other labs normal. - Imaging US - abdomen: image reviewed (Thickened GB wall with sludge) Additional studies: Hida scan without EF reveals GB fills Consult Discharge Plan - Plan Referrals: Trey Duenas MD [Primary Care Provider] -
--- NOTE | 2018-12-16 16:11 | Event Note ---
Date of Encounter: 12/16/18 Time of Encounter: 15:10 Pt presented with leukocytosis and later developed fever. Though she denied having abdominal pain, LFT's where elevated. Lipase normal. Hepatic panel was neg. Abdominal US reported normal liver. Both CT abdomen and pelvis, and abdominal US noting possible acute cholecystitis. Pt started on Zosyn and WBC trended down. Fever also improved. Discussed patient with Dr. Reid and states will see pt in consult. Pt and family have been updated.
[2018-12-16] MEDS: Ibuprofen 400 MG TABLET PO PRN (20:18)
[2018-12-17] MEDS: Piperacillin/Tazobactam 3.375 GM in 0.9 % Sodium Chloride Mini Bag 100 ML IVPB SCH ×3 (03:14→18:22)
[2018-12-17] MEDS: ALPRAZolam 1 MG TABLET PO PRN ×2 (03:19→08:15)
[2018-12-17] MEDS: 0.9 % Sodium Chloride 1,000 ML IVC SCH ×2 (05:55→16:46)
[2018-12-17] MEDS: *HR* Enoxaparin 40 MG/0.4 ML SYRINGE SQ SCH (05:58)
[2018-12-17 06:02] LABS: Hematocrit 35.2 % (35.3-44.9); Hemoglobin 12.3 g/dL (11.5-15.4); Mean Corpuscular HGB Conc 34.9 g/dL (31.6-35.5); Mean Corpuscular Hemoglobin 32.3 pg (28.0-33.3); Mean Corpuscular Volume 92.4 fL (83.0-100.0); Mean Platelet Volume 10.1 fL (9.4-12.4); Platelet Count 226 K/mcL (140-400); Red Blood Count 3.81 M/mcL (3.82-4.97); Red Cell Distribution Width 14.5 % (11.5-14.5)
[2018-12-17] MEDS: OXYCODONE Oral CONC 10 MG/0.5 ML ORAL.SYG SL PRN ×3 (06:06→20:08)
[2018-12-17 06:35] LABS: Lymphocytes # 1.5 K/mcL (0.6-4.6); Monocytes # 1.1 K/mcL (0.0-1.3); Neutrophils # 6.7 K/mcL (1.6-8.9); Platelet Estimate Normal (Normal)
[2018-12-17 06:43] LABS: Alanine Aminotransferase 97 Units/L (7-52); Albumin 3.1 g/dL (3.5-5.7); Albumin/Globulin Ratio 1.1 (1.1-2.2); Alkaline Phosphatase 149 Units/L (34-104); Aspartate Amino Transferase 68 Units/L (13-39); BUN/Creatinine Ratio 6 (6-26); Bilirubin,Total 0.6 mg/dL (0.3-1.0); Blood Urea Nitrogen 4 mg/dL (6-20); Calcium 8.4 mg/dL (8.6-10.3); Carbon Dioxide 25 mEq/L (23-29); Chloride 107 mEq/L (98-107); Globulin 2.7 g/dL (2.4-3.5); Glucose 235 mg/dL (70-105); Osmolality,Calculated 296 (280-300); Potassium 3.5 mEq/L (3.5-5.1); Sodium 141 mEq/L (136-145); Total Protein 5.8 g/dL (6.4-8.9); eGFR For Non-African Americans > 60 (> 60)
[2018-12-17] MEDS: Insulin LISPRO 300 UNITS/3 ML VIAL SQ SCH ×4 (07:55→20:13)
[2018-12-17] MEDS: (INSULIN PUMP) SQ SCH (08:12)
[2018-12-17] MEDS: BuPROPion XL (24 HR) 150 MG TABLET PO SCH (08:12)
[2018-12-17] MEDS: Gabapentin 400 MG CAPSULE PO SCH ×3 (08:12→20:13)
[2018-12-17] MEDS: Ibuprofen 400 MG TABLET PO PRN (10:51)
--- NOTE | 2018-12-17 13:45 | Acute Care Surgery Event Note ---
Date of Encounter: 12/17/18 Time of Encounter: 13:30 The patient was seen and evaluated this morning on rounds with the acute care surgery team. I returned and answered any questions patient may have. We will proceed with laparoscopic cholecystectomy, cholangiogram later today. Trey Womack MD FACS
--- NOTE | 2018-12-17 14:49 | Internal Med Progress Note ---
Hospitalist Progress Note - Encounter Date of Encounter: 12/17/18 Time of Encounter: 14:45 - Subjective Interval History: Pt reports back pain but states this is chronic. Pain controlled with PRN pain medication. She denies fever, chills, N/V or diarrhea. She denies CP or SOB. She denies abdominal pain. and mother at bedside. - Exam Vitals: Temp Pulse Resp BP Pulse Ox 98.1 F 61 16 136/76 96 12/17/18 12:22 12/17/18 12:22 12/17/18 12:22 12/17/18 12:22 12/17/18 12:22 Exam: General appearance: Present: A&O X 3 Exam: Head exam: Present: atraumatic, normocephalic Eye exam: Present: PERRL, conjuntiva pink, sclera anicteric Pupils: Present: PERRL Neck exam general surgery: Present: supple, trachea midline. Absent: lymphadenopathy Respiratory exam: Present: CTAB. Absent: accessory muscle use, rales, rhonchi, wheezes Cardiovascular exam: Present: RRR, +S1, +S2. Absent: diastolic murmur, gallop, rubs, systolic murmur GI/Abdominal exam: Present: normal bowel sounds, soft, no peritoneal signs. Absent: distended, tenderness Extremities exam: Present: warm, radial pulses palpable and symmetrical. Absent: calf tenderness, cyanotic, pedal edema Neurological exam: Present: CN II-XII intact, oriented X3, no focal deficits. Absent: pronater drift, facial droop, speech deficit Skin exam: Present: dry, intact - Assessment and Plan (1) Sepsis Current Visit: Yes Status: Acute Assessment and Plan: Pt with leukocytosis on admission. WBC 23K. WBC 23K 12/13/18. No obvious infectious source. UA without evidence of UTI. CXR unremarkable. Lactic acid 0.8. It was initially thought to be possibly reactive with dehydration/DKA however patient did report loose stool on admission. C.diff stool ordered but pt had not been able to give a sample. Blood cx's incubating. Respiratory panel was negative. CT chest reviewed and no documentation of PNA. CT abdomen reporting acute cholecystitis vs pyelonephritis. Urine culture not shwoing any growth so far. AST 74, ALT 94, Alk phos 117, and Lipase 5 Started on Zosyn for now 12/15/18, though etiology unclear at this time. WBC trending down and pt has been afebrile since 12/15/18 16:18. Abdominal US showed gallbladder sludge as well as thickening of the gallbladder wall and possible acute cholecystitis. NM scan negative for acute cholecystitis. Pt's fever resolved. WBC trending down. while on Zosyn and DC'ed Levaquin. Discussed with general surgery saw pt in consult. Pt to have lap candy 12/17/18. Will recheck LFT's post op. (2) SIRS (systemic inflammatory response syndrome) Current Visit: Yes Status: Acute Assessment and Plan: as above (3) Leukocytosis Current Visit: Yes Status: Acute Assessment and Plan: WBC 23K 12/13/18. No obvious infectious source. UA without evidence of UTI. CXR unremarkable. Lactic acid 0.8. It was initially thought to be possibly reactive with dehydration/DKA Blood cx's incubating. Respiratory panel was negative. CT chest reviewed and no documentation of PNA. CT abdomen reporting acute cholecystitis vs pyelonephritis. Urine culture not shwoing any growth so far. AST 74, ALT 94, Alk phos 117, and Lipase 5 Abdominal US showed gallbladder sludge as well as thickening of the gallbladder wall and possible acute cholecystitis. NM scan negative for acute cholecystitis, will hold off on consulting surgery for now. CT abd/pelvis CT/CT abd pelvis w iv no oral IMPRESSION: Heterogeneous enhancement of the kidneys raises the question of pyelonephritis Pericholecystic fluid may be due to the ascites or acute cholecystitis. Correlate clinically. Ovoid intermediate density left adnexa. This is indeterminate. Correlate with ultrasound as this does not meet criteria for a simple cyst. Wall thickening in the urinary bladder suggesting age-indeterminate cystitis. Seen by surgery and possible lap candy today, 12/17/18. (4) DKA, type 1 Current Visit: Yes Status: Acute Assessment and Plan: 12/13/18-12/14/18 Pt has known type 1 diabetes with insulin pump diagnosed at 29 years old. Blood sugars >500 and beta-hydroxybutyric elevated. UA with ketones. Holding insulin pump. Cont insulin gtt, monitor electrolytes/blood sugar. DKA protocol initiated on admission. Hgb A1c 9.5. Pt on SSI and was given Levemir 15 units x one 12/13/18. Pt will be resumed on insulin gtt for now due to glucose being in 400's. Hyperglycemia likely made worse by infectious process. Pt febrile and WBC elevated. Infectious work up in progress. Will place on empiric anitbiotic with Zosyn and Levaquin for now. 12/15/18 GAP closed and glucose improved. Pt to resumed insulin pump and nurse instructed to continue with SSI. Started on Zosyn for possible cholecytistis and or pyelonephritis. 12/16/09 Pt's fever resolved. WBC trending down. Will continue Zosyn for now and DC Levaquin. Will check NM scan gall bladder and if abnormal consult surgery. 12/17/18 Discussed case with surgery 12/16/18 and saw in consult. Planing for surgery 12/17/18 (5) Chronic pain Current Visit: Yes Status: Acute Assessment and Plan: per hx. Reported taking percocet at home. OAR[place] reviewed on 12/13/18 and no active rx for percocet. Add lidoderm patch. PRN oxy ordered as well (6) Hyponatremia Current Visit: Yes Status: Acute Assessment and Plan: Na 127 but improving. Repeat Na 130; neurologically intact. Pseudohyponatremia secondary to hyperglycemia. (7) Nausea Current Visit: Yes Status: Acute Assessment and Plan: With associated loose stool. Possible gastroenteritis. Recent ATB use 3-4 weeks ago. Checking stool for c.diff and awaiting sample from pt. NPO. PRN zofran. Supportive care for now. (8) Abnormal urine findings Current Visit: Yes Status: Acute Assessment and Plan: Urine analysis abnormal and urine culture sent. Urine culture no growth UTI ruled out DVT Prophylaxis: Lovenox - Summary of Assessment and Plan Summary of Assessment and Plan: History of present illness: Alex Mark is a 43 year old female with PMH type 1 diabetes presented to [facility] on 12/13/18 with complaints of neausea. She was found to be in DKA and was hospitalized for further work-up and treatment. Information obtained from chart review and patient report. Patient says she has been nauseated over the last 2-3 days. Denied ABD pain. Had 2 episodes non-bloody loose stool day of arrival. No aggravating or alleviating factors. Says she is unable to keep anything down. Reports comlnaice with insulin pump and pump is functioning correctly. Denied sick contacts. Treated for URI approx 3-4 weeks ago. - Time Spent with Patient Total time spent is greater than 50% in coordination of care (as documented) at patient's floor/unit and/or counseling patient: less than 15 minutes Plan of Care Discussed with: patient Internal Medicine: Result - Labs CBC & Chem 7: 12/17/18 05:31 12/17/18 05:31 Labs: Short CBC 12/17/18 Range/Units 05:31 WBC 9.3 (4.3-11.1) K/mcL Hgb 12.3 (11.5-15.4) g/dL Hct 35.2 L (35.3-44.9) % Plt Count 226 (140-400) K/mcL Neutrophils # 6.7 (1.6-8.9) K/mcL BMP 12/17/18 05:31 Sodium 141 Potassium 3.5 Chloride 107 Carbon Dioxide 25 BUN 4 L Creatinine 0.72 Glucose 235 H Calcium 8.4 L Liver Function 12/17/18 Range/Units 05:31 Total Bilirubin 0.6 (0.3-1.0) mg/dL AST 68 H (13-39) Units/L ALT 97 H (7-52) Units/L Alkaline Phosphatase 149 H (34-104) Units/L Albumin 3.1 L (3.5-5.7) g/dL Consult Discharge Plan - Plan Referrals: Trey Duenas MD [Primary Care Provider] - (3) Leukocytosis Qualifiers: Leukocytosis type: unspecified Qualified Code(s): D72.829 - Elevated white blood cell count, unspecified (4) DKA, type 1 Qualifiers: Diabetes mellitus complication detail: without coma Qualified Code(s): E10.10 - Type 1 diabetes mellitus with ketoacidosis without coma (5) Chronic pain Qualifiers: Chronic pain type: chronic pain syndrome Qualified Code(s): G89.4 - Chronic pain syndrome
--- NOTE | 2018-12-17 18:05 | Anesthesia Evaluation PreOp ---
Date of Encounter: 12/18/18 Time of Encounter: 18:04 - Past History Planned Operation: Lap Yolanda Cardiac History: Hyperlipidemia Pulmonary History: Smoker TRANSFORMATION ANALYST History: Other (Anxiety/Depression/Panic Disorder) Other Medical History: Diabetes Type I (+ insulin pump) Anesthesia History: No Prior Anesthetic Complications, Past Anesthesia (Ovarian cyst excision) Alcohol Use: none Drug use: none Medications and Allergies ALPRAZolam [Xanax 1 MG Tablet] 1 mg PO TID PRN 12/13/18 [History] Atorvastatin [Lipitor] 40 mg PO HS 12/13/18 [History] BuPROPion XL (24 HR) [Wellbutrin XL] 150 mg PO DAILY 12/13/18 [History] Citalopram [CeleXA] 40 mg PO HS 12/13/18 [History] Gabapentin [Neurontin] 800 mg PO QID 12/13/18 [History] Insulin ASPART [NovoLOG] 0 units CONT 12/13/18 [History] Allergy/AdvReac Type Severity Reaction Status Date / Time No Known Allergies Allergy Verified 12/13/18 08:06 - Meds/Allergy Pre-op Review Medications Reviewed: Yes Allergies Reviewed: Yes Beta Blockers on Current Med List: No Anesthesia Results - Labs 12/17/18 05:31 12/17/18 05:31 Laboratory Tests 12/13/18 12/14/18 12/17/18 08:48 00:11 05:31 Est GFR (Non-Af Amer) > 60 Est Mean Plasma Glucose 226 Hemoglobin A1c 9.5 H AST 68 H ALT 97 H Alkaline Phosphatase 149 H Urine Test Negative Laboratory Results Impressions Chest X-Ray 12/13/18 09:12 IMPRESSION: No acute cardiopulmonary findings. D/ / Arleen Cook MD / Arleen Cook MD Interpreting Provider: Arleen Cook MD Abdomen/Pelvis CT 12/15/18 13:00 IMPRESSION: Heterogeneous enhancement of the kidneys raises the question of pyelonephritis Pericholecystic fluid may be due to the ascites or acute cholecystitis. Correlate clinically. Ovoid intermediate density left adnexa. This is indeterminate. Correlate with ultrasound as this does not meet criteria for a simple cyst. Wall thickening in the urinary bladder suggesting age-indeterminate cystitis. D/ / Ata Gann / Ata Gann Interpreting Provider: Ata Gann Chest CT 12/15/18 13:00 IMPRESSION: No significant change in the appearance of the chest since August 2018. Extensive tiny centrilobular pulmonary nodules redemonstrated without significant change, suggestive of small airways disease. This is nonspecific. Respiratory bronchiolitis or other cause of bronchiolitis considered. This would be best evaluated with a high-resolution CT of the chest. New small amount of cavitation within 1 of the grouped nodules in the right lower lobe which are otherwise unchanged. Continued follow-up is recommended. Trace amount right pleural fluid without significant effusion. D/ / Romeo Hickey MD / Romeo Hickey MD Interpreting Provider: Romeo Hickey MD Abdomen Ultrasound 12/16/18 08:30 IMPRESSION: 1. Gallbladder sludge as well as thickening of the gallbladder wall. Acute cholecystitis should be considered. 2. Mildly prominent common bile duct measuring 0.65 cm. RECOMMENDATIONS: HIDA scan. D/ / 12/16/2018 09:05:12 Enedina Alas MD / Rosibel Gomes Interpreting Provider: Enedina Alas MD Bile Acid Absorption NM 12/16/18 09:25 IMPRESSION: Patency of the common bile duct and cystic duct. No acute cholecystitis. D/ / Romeo Gallardo MD / Romeo Gallardo MD Interpreting Provider: Romeo Gallardo MD Anesthesia Exam Vital Signs Temp Pulse Resp BP Pulse Ox 12/17/18 15:45 98.0 F 81 16 144/71 98 12/17/18 12:22 98.1 F 61 16 136/76 96 12/17/18 11:14 98.8 F 65 18 129/79 96 12/17/18 07:31 99.9 F H 72 18 132/70 95 12/17/18 03:21 97.9 F 59 16 121/72 98 12/16/18 23:51 97.6 F 61 18 115/73 97 12/16/18 22:57 98.5 F 65 16 128/78 96 12/16/18 20:13 100.1 F H 69 18 136/73 98 Intake and Output 12/17/18 12/17/18 12/17/18 07:59 15:59 23:59 Intake Total 1200 / 1200 0 / 0 1000 / 1000 Balance 1200 / 1200 0 / 0 1000 / 1000 Intake: IV Fluids 1200 / 1200 1000 / 1000 0.9 % Sodium Chloride 1,000 ML 1000 / 1000 1000 / 1000 @ 100 mls/hr IVC .Q10H HONG Rx#: [id number] Zosyn 3.375 GM In 0.9 % Sodium 200 / 200 Chloride (Mini-Bag +) 100 ML @ 25 mls/hr IVPB Q8H HONG Rx#: [id number] Oral 0 / 0 0 / 0 Other: Meal NPO Percent of Meal Consumed 0% # Voids 2 Weight 59 kg Blood Glucose* 209 218 230 Patient Weight 12/17/18 23:59 Weight 59 kg Height: 5'3 Weight: 130# BMi = 23 NPO (# of Hours): MNoc - HEENT Pupil (Motor): Pupils equal, EOMI Mallampati: II Oral Opening: Greater than 3 - TRANSFORMATION ANALYST LOC: Oriented TRANSFORMATION ANALYST Motor: Normal RUE, Normal LUE, Normal RLE, Normal LLE, Normal Face TRANSFORMATION ANALYST Sensory: Normal: RUE, LUE, RLE, LLE, Face - Cardiac Rhythm: Regular Murmur: None - Pulmonary Breath Sounds: bilateral Clear Respiratory Effort: Symmetrical Anesthesia Assess/Plan ASA Score: 3 (DM-I, Cholesterol, Smoker,) Level of consciousness: Cooperative, Oriented, Tranquil Anesthetic Plan: General Monitoring Plan: Standard Monitors Recovery Plan: PACU Anes Supervising Prov Stmt: Pt seen/evaluated, R&B Discussed, questions answered and consent obtained. Deng Chaudhari MD
[2018-12-17] MEDS ORDERED: *HR* LORazepam 2 MG/ML VIAL IVP ONE (18:13)
[2018-12-17] MEDS: *HR* Promethazine 25 MG/ML VIAL IVP PRN (22:53)
[2018-12-17] MEDS ORDERED: Lidocaine -MPF 2% 2 ML VIAL ONE ×2 (23:57→23:58)
[2018-12-17] MEDS ORDERED: *HR* Succinylcholine 200 MG/10 ML VIAL IVP ONE (23:58)
[2018-12-17] MEDS ORDERED: *HR* FentaNYL (PF) 100 MCG/2 ML VIAL ONE (23:58)
[2018-12-17] MEDS ORDERED: *HR* Midazolam HCl 2 MG/2 ML VIAL ONE (23:59)
[2018-12-17] MEDS ORDERED: *HR* Propofol 200 MG/20 ML VIAL IVP ONE (23:59)
[2018-12-18] MEDS ORDERED: CefOXitin 1,000 MG VIAL ONE (02:20)
[2018-12-18] MEDS ORDERED: Albuterol 2.5 MG/3 ML NEBULIZER ONE (02:20)
[2018-12-18] MEDS ORDERED: Isovue-300 50 ML VIAL ONE (02:21)
[2018-12-18] MEDS ORDERED: *HR* HYDROmorphone (PF) 1 MG/ML SYRINGE IVP PRN (02:33)
[2018-12-18] MEDS ORDERED: *HR* OxyCODONE Immed Rel 5 MG TABLET PO PRN (02:33)
[2018-12-18] MEDS ORDERED: *HR* HYDROmorphone 2 MG TABLET PO PRN (02:33)
[2018-12-18] MEDS ORDERED: *HR* Labetalol 20 MG/4 ML SYRINGE IVP PRN ×2 (02:33→05:06)
[2018-12-18] MEDS ORDERED: Acetaminophen IV 1,000 MG/100 ML INFUS..BTL ONE (02:38)
[2018-12-18] MEDS: Piperacillin/Tazobactam 3.375 GM in 0.9 % Sodium Chloride Mini Bag 100 ML IVPB SCH (03:06)
[2018-12-18] MEDS ORDERED: Lacri-Lube 3.5 GM TUBE ONE (03:07)
[2018-12-18] MEDS ORDERED: *HR* HYDROMORPHONE 2 MG/ML VIAL ONE (03:17)
[2018-12-18] MEDS ORDERED: Dexamethasone 4 MG/ML VIAL ONE (03:34)
[2018-12-18] MEDS ORDERED: Ondansetron 4 MG/2 ML VIAL ONE (03:34)
--- NOTE | 2018-12-18 03:56 | Operative Note ---
Date of procedure: 12/18/18 Pre-op diagnosis: Acalculous cholecystitis Post-op diagnosis: same Procedure: Laparoscopic cholecystectomy, cholangiogram Anesthesia: JOSELUIS Surgeon: Trey Womack Was there an grants assistant present: No Estimated blood loss (cc): 10 Specimen: Gallbladder and contents Condition: stable Disposition: PACU Procedure in Detail: Laparoscopic cholecystectomy and intraoperative cholangiogram Operative procedure after informed consent and appropriate patient identifi cation timeout the patient was taken to the major operating suite and placed supine position given adequate general endotracheal anesthesia the abdomen is prepped and draped in sterile fashion utilizing ChloraPrep standard draping techniques timeout was taken patient is identified. I made a vertical midline incision below the umbilicus dissected down to level of fascia there are 2 traction stitches placed in the abdominal cavity was entered visually. A Pritchett trocar was placed in the abdomen and the abdomen was insufflated to 15 mmHg pressure CO2 the gallbladder was visualized. A placement 11 port in the subxiphoid area and 2 5 mm ports in the subcostal area. Pericolic cystic fluid was noted. The gallbladder wall did not appear to be thickened The gallbladder was grasped and elevated. A variety of blunt and sharp dissection techniques were used to isolate the cystic duct and cystic artery. The cystic artery was controlled with 2 surgical clips proximally and one distally and it was divided I placed a surgical clip on the neck the gallbladder and obtained an intraoperative cholangiogram using 10 mL of Isovue. Intraoperative cholangiogram was normal. The cholangiocatheter was removed and the cystic duct was controlled with 2 surgical clips proximally and was divided the gallbladder was removed from the gallbladder fossae using electrocautery. The gallbladder was removed through the #11 port site. I replaced the #11 port and irrigated with copious amounts of antibiotic containing solution. There is no evidence of bleeding or bile leak. All trochars were removed. Fascia was closed with 0 Vicryl skin with 2-0 and 4-0 Vicryl she tolerated the procedure well and was transferred to recovery in stable condition
[2018-12-18] MEDS ORDERED: Insulin Regular, Human 100 UNIT/ML SQ ONE (04:09)
[2018-12-18] MEDS ORDERED: 0.9 % Sodium Chloride 1,000 ML IVC SCH (05:06)
[2018-12-18] MEDS ORDERED: *HR* Dextrose 50 % in Water (Syg) 50 ML SYRINGE IVP PRN (05:06)
[2018-12-18] MEDS ORDERED: Dextrose 4 GM Chewable Tablets PO PRN ×2 (05:06)
[2018-12-18] MEDS ORDERED: Acetaminophen 325 MG TABLET PO PRN (05:06)
[2018-12-18] MEDS ORDERED: Ondansetron 4 MG/2 ML VIAL IVP PRN (05:06)
[2018-12-18] MEDS ORDERED: Naloxone 0.4 MG/ML INJ IVP PRN (05:06)
[2018-12-18] MEDS ORDERED: D5% in Water 1,000 ML IVC PRN (05:06)
[2018-12-18] MEDS ORDERED: OXYCODONE Oral CONC 10 MG/0.5 ML ORAL.SYG SL PRN (05:06)
[2018-12-18] MEDS ORDERED: ALPRAZolam 1 MG TABLET PO PRN (05:06)
[2018-12-18] MEDS ORDERED: *HR* Promethazine 25 MG/ML VIAL IVP PRN (05:06)
[2018-12-18] MEDS ORDERED: Ibuprofen 400 MG TABLET PO PRN (05:06)
[2018-12-18] MEDS: 0.9 % Sodium Chloride 1,000 ML IVC SCH (05:15)
[2018-12-18] MEDS ORDERED: *HR* Enoxaparin 40 MG/0.4 ML SYRINGE SQ SCH (06:00)
--- NOTE | 2018-12-18 07:19 | Anesthesia Evaluation Post Op ---
Date of Encounter: 12/18/18 Time of Encounter: 04:30 - Vital Signs Vital Signs: Vital Signs Temp Pulse Resp BP Pulse Ox 12/18/18 04:31 99.7 F H 96 16 96/49 93 12/18/18 04:21 93 20 97/57 93 12/18/18 04:11 94 20 95/47 94 12/18/18 04:01 98.3 F 84 20 99/54 94 12/17/18 23:39 98.7 F 71 16 145/76 97 12/17/18 19:23 98.4 F 80 16 121/80 96 12/17/18 15:45 98.0 F 81 16 144/71 98 12/17/18 12:22 98.1 F 61 16 136/76 96 12/17/18 11:14 98.8 F 65 18 129/79 96 12/17/18 07:31 99.9 F H 72 18 132/70 95 Intake and Output 12/17/18 12/17/18 12/18/18 15:59 23:59 07:59 Intake Total 100 / 100 1000 / 1000 1000 / 1000 Output Total 10 / 10 Balance 100 / 100 1000 / 1000 990 / 990 Intake: IV Fluids 100 / 100 1000 / 1000 1000 / 1000 0.9 % Sodium Chloride 1,000 ML 1000 / 1000 1000 / 1000 @ 100 mls/hr IVC .Q10H HONG Rx#: [id number] Zosyn 3.375 GM In 0.9 % Sodium 100 / 100 Chloride (Mini-Bag +) 100 ML @ 25 mls/hr IVPB Q8H HONG Rx#: [id number] Oral 0 / 0 Output: Estimated Blood Loss 10 / 10 Other: Meal NPO Percent of Meal Consumed 0% # Voids 1 Blood Glucose* 218 182 338 - Lungs Lungs: Clear Ascult./Percussion - Airway Airway: Non-obstructed - Cardiovascular Regular Rate - Mental Status Mental Status: Alert & Oriented, Answers Appropriately - Pain Pain Scale: 0 Pain Scale used: Numeric (1 - 10) - Nausea Vomiting Nausea Vomiting: Not Present - Hydration Hydration: Tolerates oral liquids - Discharge PostOp Status: Transfer Patient to floor Anes Supervising Prov Stmt: Pt seen/evaluated, VSS and has met criteria for discharge to floor. - MD Watson
[2018-12-18] MEDS ORDERED: Insulin LISPRO 300 UNITS/3 ML VIAL SQ SCH ×2 (07:30→21:00)
[2018-12-18 07:57] LABS: Basophils % 0.2 %; Hematocrit 34.8 % (35.3-44.9); Immature Granulocytes % 0.7 % (0-4); Lymphocytes # 1.5 K/mcL (0.6-4.6); Lymphocytes % 16.2 %; Mean Corpuscular HGB Conc 34.5 g/dL (31.6-35.5); Mean Corpuscular Hemoglobin 32.1 pg (28.0-33.3); Mean Platelet Volume 10.3 fL (9.4-12.4); Monocytes # 1.2 K/mcL (0.0-1.3); Neutrophils # 6.3 K/mcL (1.6-8.9); Platelet Count 297 K/mcL (140-400); Red Blood Count 3.74 M/mcL (3.82-4.97); Red Cell Distribution Width 14.6 % (11.5-14.5); Segmented Neutrophils % 69.9 %
[2018-12-18 08:15] LABS: Alanine Aminotransferase 85 Units/L (7-52); Albumin 3.1 g/dL (3.5-5.7); Albumin/Globulin Ratio 1.1 (1.1-2.2); Alkaline Phosphatase 134 Units/L (34-104); Aspartate Amino Transferase 61 Units/L (13-39); BUN/Creatinine Ratio 10 (6-26); Bilirubin,Total 0.5 mg/dL (0.3-1.0); Blood Urea Nitrogen 7 mg/dL (6-20); Calcium 8.5 mg/dL (8.6-10.3); Carbon Dioxide 23 mEq/L (23-29); Chloride 107 mEq/L (98-107); Globulin 2.7 g/dL (2.4-3.5); Glucose 293 mg/dL (70-105); Osmolality,Calculated 297 (280-300); Potassium 3.1 mEq/L (3.5-5.1); Sodium 139 mEq/L (136-145); Total Protein 5.8 g/dL (6.4-8.9); eGFR For Non-African Americans > 60 (> 60)
[2018-12-18] MEDS: Gabapentin 400 MG CAPSULE PO SCH ×2 (08:26→11:58)
[2018-12-18] MEDS ORDERED: BuPROPion XL (24 HR) 150 MG TABLET PO SCH (09:00)
--- NOTE | 2018-12-18 09:00 | AcuteCareSurgery Progress Note ---
<Ronen Nichols Austin - Last Filed: 12/18/18 10:40> Date of Encounter: 12/18/18 Time of Encounter: 07:45 - Assessment and Plan (1) Acute calculous cholecystitis Current Visit: Yes Status: Acute -S/p lap candy with intraop cholangiogram without complications -Minimal post surgical abdominal pain as to be expected -No signs of infection or post op complications -If tolerates diet she is able to be dc when primary service ready -Surg will sign off and she will followup in surg clinic after dc Subjective Narrative: S/p lap cholecystectomy overnight. Overall feeling improved. Minimal abdominal pain at incision sites. Denies subjective fever/chills, worsening abdominal pain, N/V, diarrhea. Objective Vital Signs - Last 8 Hours Temp Pulse Resp BP Pulse Ox 12/18/18 06:34 89 103/62 12/18/18 06:04 86 95 103/62 12/18/18 05:33 80 16 104/64 94 12/18/18 05:17 98.0 F 81 16 102/64 94 12/18/18 05:02 98.6 F 88 18 103/65 94 12/18/18 04:47 98.6 F 91 18 105/62 93 12/18/18 04:31 99.7 F H 96 16 96/49 93 12/18/18 04:21 93 20 97/57 93 12/18/18 04:11 94 20 95/47 94 12/18/18 04:01 98.3 F 84 20 99/54 94 Intake and Output 12/17/18 12/18/18 12/18/18 23:59 07:59 15:59 Intake Total 1000 / 1000 1000 / 1000 Output Total Balance 1000 / 1000 990 / 990 Intake: IV Fluids 1000 / 1000 1000 / 1000 0.9 % Sodium Chloride 1,000 ML 1000 / 1000 1000 / 1000 @ 100 mls/hr IVC .Q10H HONG Rx#: [id number] Output: Estimated Blood Loss Other: # Voids 1 Blood Glucose* 182 290 - General physical appearance well developed, well nourished, no distress - Eyes normal ocular movement - ENT normal mucosa - Neck Neck exam: trachea midline - Respiratory normal expansion, normal respiratory effort, clear to auscultation - Cardiovascular Cardiovascular exam: Present: RRR. Absent: bradycardia, tachycardia, irregular rhythm, murmurs, clicks, rubs, gallop, distant heart sounds, JVD - Abdomen Abdomen: Present: bowel sounds present, soft, tender (mildly at incison sites). Absent: distended, masses, guarding, rebound, rigid - Incision Incision: Present: clean and dry, approximated. Absent: draining, red, swollen, inflamed, erythema, purulent, indurated, serous, serosanguinous - Integumentary no rash - Neurologic CN 2-12 grossly intact - Psychiatric oriented to time, oriented to person, oriented to place, speech is normal - Labs 12/18/18 07:21 12/18/18 07:21 Diabetes panel 12/18/18 Range/Units 07:21 Sodium 139 (136-145) mEq/L Potassium 3.1 L (3.5-5.1) mEq/L Chloride 107 (98-107) mEq/L Carbon Dioxide 23 (23-29) mEq/L BUN 7 (6-20) mg/dL Creatinine 0.70 (0.60-1.20) mg/dL Glucose 293 H (70-105) mg/dL Calcium 8.5 L (8.6-10.3) mg/dL AST 61 H (13-39) Units/L ALT 85 H (7-52) Units/L Alkaline Phosphatase 134 H (34-104) Units/L Albumin 3.1 L (3.5-5.7) g/dL Calcium panel 12/18/18 Range/Units 07:21 Calcium 8.5 L (8.6-10.3) mg/dL Albumin 3.1 L (3.5-5.7) g/dL Pituitary panel 12/18/18 Range/Units 07:21 Sodium 139 (136-145) mEq/L Potassium 3.1 L (3.5-5.1) mEq/L Chloride 107 (98-107) mEq/L Carbon Dioxide 23 (23-29) mEq/L BUN 7 (6-20) mg/dL Creatinine 0.70 (0.60-1.20) mg/dL Glucose 293 H (70-105) mg/dL Calcium 8.5 L (8.6-10.3) mg/dL Adrenal panel 12/18/18 Range/Units 07:21 Sodium 139 (136-145) mEq/L Potassium 3.1 L (3.5-5.1) mEq/L Chloride 107 (98-107) mEq/L Carbon Dioxide 23 (23-29) mEq/L BUN 7 (6-20) mg/dL Creatinine 0.70 (0.60-1.20) mg/dL Glucose 293 H (70-105) mg/dL Calcium 8.5 L (8.6-10.3) mg/dL Total Bilirubin 0.5 (0.3-1.0) mg/dL AST 61 H (13-39) Units/L ALT 85 H (7-52) Units/L Alkaline Phosphatase 134 H (34-104) Units/L Albumin 3.1 L (3.5-5.7) g/dL Consult Discharge Plan - Plan Instructions: Diabetes Mellitus Type 2 in Adults (DC), Laparoscopic Cholecystectomy (DC) Additional Instructions: General Surgical Discharge Instructions 1. No pushing, pulling, or lifting greater than 15 lbs for 2-4 weeks (depending upon procedure). 2. You may shower beginning today, but no tub baths, soaking, or swimming for 2 weeks. 3. You may resume driving when you are off narcotics and are safe to react in a car. 4. Take ibuprofen every 8 hours for discomfort. If this does not relieve discomfort, you may take the as needed Percocet. Take narcotics as directed. Do not take more narcotics then directed and do not share your narcotics with any other person. Do not drink alcohol while on narcotics. 5. Take stool softeners (Colace) or a water based laxative (Miralax) while taking narcotics. You may hold for loose stools. 6. Report any fevers greater than 100.5F, increase abdominal discomfort, drainage that looks like pus, increased redness or pain at the surgical site, or any vomiting. 7. Report any pain in the calves, shortness of breath, or rapid heartbeat. 8. Follow-up in the office as directed. 9. If you were prescribed antibiotics, do not stop them without talking to your provider. Referrals: Trey Duenas MD [Primary Care Provider] - 12/25/18 2:00 pm Prescriptions: Ondansetron ODT [Zofran ODT] 4 mg SL Q6HR PRN 3 Days #15 tab.rapdis PRN Reason: Nausea Docusate [Colace] 100 mg PO BID 15 Days #30 capsule RX: Ibuprofen 800 mg PO Q8H 14 Days #42 tablet Oxycodone HCl/Acetaminophen [Percocet 5-325 mg Tablet] 1 each PO Q6H PRN 7 Days #28 tablet PRN Reason: Breakthrough Pain <ValentinBertin Omari - Last Filed: 12/18/18 14:15> Date of Encounter: 12/18/18 Objective Vital Signs - Last 8 Hours Temp Pulse Resp BP Pulse Ox 12/18/18 11:17 97.6 F 73 16 119/75 95 12/18/18 06:34 89 103/62 Intake and Output 12/17/18 12/18/18 12/18/18 23:59 07:59 15:59 Intake Total 1000 / 1000 1000 / 1000 Output Total Balance 1000 / 1000 990 / 990 Intake: IV Fluids 1000 / 1000 1000 / 1000 0.9 % Sodium Chloride 1,000 ML 1000 / 1000 1000 / 1000 @ 100 mls/hr IVC .Q10H HONG Rx#: [id number] Output: Estimated Blood Loss Other: # Voids 1 Blood Glucose* 182 290 253 - Labs 12/18/18 07:21 12/18/18 07:21 Diabetes panel 12/18/18 Range/Units 07:21 Sodium 139 (136-145) mEq/L Potassium 3.1 L (3.5-5.1) mEq/L Chloride 107 (98-107) mEq/L Carbon Dioxide 23 (23-29) mEq/L BUN 7 (6-20) mg/dL Creatinine 0.70 (0.60-1.20) mg/dL Glucose 293 H (70-105) mg/dL Calcium 8.5 L (8.6-10.3) mg/dL AST 61 H (13-39) Units/L ALT 85 H (7-52) Units/L Alkaline Phosphatase 134 H (34-104) Units/L Albumin 3.1 L (3.5-5.7) g/dL Calcium panel 12/18/18 Range/Units 07:21 Calcium 8.5 L (8.6-10.3) mg/dL Albumin 3.1 L (3.5-5.7) g/dL Pituitary panel 12/18/18 Range/Units 07:21 Sodium 139 (136-145) mEq/L Potassium 3.1 L (3.5-5.1) mEq/L Chloride 107 (98-107) mEq/L Carbon Dioxide 23 (23-29) mEq/L BUN 7 (6-20) mg/dL Creatinine 0.70 (0.60-1.20) mg/dL Glucose 293 H (70-105) mg/dL Calcium 8.5 L (8.6-10.3) mg/dL Adrenal panel 12/18/18 Range/Units 07:21 Sodium 139 (136-145) mEq/L Potassium 3.1 L (3.5-5.1) mEq/L Chloride 107 (98-107) mEq/L Carbon Dioxide 23 (23-29) mEq/L BUN 7 (6-20) mg/dL Creatinine 0.70 (0.60-1.20) mg/dL Glucose 293 H (70-105) mg/dL Calcium 8.5 L (8.6-10.3) mg/dL Total Bilirubin 0.5 (0.3-1.0) mg/dL AST 61 H (13-39) Units/L ALT 85 H (7-52) Units/L Alkaline Phosphatase 134 H (34-104) Units/L Albumin 3.1 L (3.5-5.7) g/dL - Attending Attestation patient seen and examined. i have reviewed all notes, labs, and imaging. i agree with the above assessment and plan.
[2018-12-18] MEDS ORDERED: Piperacillin/Tazobactam 3.375 GM in 0.9 % Sodium Chloride Mini Bag 100 ML IVPB SCH (11:00)
[2018-12-18 11:18] VITALS: BP 119/75
--- NOTE | 2018-12-18 12:29 | Discharge Summary ---
- NOTES TO OUTPATIENT PROVIDER Notes to Outpatient Provider: PCP in 5 to 7 days. Surgery as recommended Orders not resulted at time of discharge: Pending orders 12/13/18 11:59 Culture,Blood [BC] Stat 12/15/18 09:47 Culture,Blood [BC] Stat 12/18/18 03:38 Surgical Pathology [PTH] Routine Date of Encounter: 12/18/18 Time of Encounter: 12:28 - Discharge Diagnosis (1) DKA, type 1 Priority: Primary Status: Acute Assessment and Plan: 12/13/18-12/14/18 Pt has known type 1 diabetes with insulin pump diagnosed at 29 years old. Blood sugars >500 and beta-hydroxybutyric elevated. UA with ketones. Holding insulin pump. Cont insulin gtt, monitor electrolytes/blood sugar. DKA protocol initiated on admission. Hgb A1c 9.5. Pt on SSI and was given Levemir 15 units x one 12/13/18. Pt will be resumed on insulin gtt for now due to glucose being in 400's. Hyperglycemia likely made worse by infectious process. Pt febrile and WBC elevated. Infectious work up in progress. Will place on empiric anitbiotic with Zosyn and Levaquin for now. 12/15/18 GAP closed and glucose improved. Pt to resumed insulin pump and nurse instructed to continue with SSI. Started on Zosyn for possible cholecytistis and or pyelonephritis. 12/16/09 Pt's fever resolved. WBC trending down. Will continue Zosyn for now and DC Levaquin. Will check NM scan gall bladder and if abnormal consult surgery. 12/17/18 Discussed case with surgery 12/16/18 and saw in consult. Planing for surgery 12/17/18. 12/18/18 Symptoms of back pain resolved. Fever and leukocytosis resolved. LFT's trending down. Pt to continue with insulin pump. Follow up out pt with PCP. Qualifiers: Diabetes mellitus complication detail: without coma Qualified Code(s): E10.10 - Type 1 diabetes mellitus with ketoacidosis without coma (2) Sepsis Priority: Primary Status: Acute Assessment and Plan: Pt with leukocytosis on admission. WBC 23K. WBC 23K 12/13/18. No obvious infectious source. UA without evidence of UTI. CXR unremarkable. Lactic acid 0.8. It was initially thought to be possibly reactive with dehydration/DKA however patient did report loose stool on admission. C.diff stool ordered but pt had not been able to give a sample. Blood cx's incubating. Respiratory panel was negative. CT chest reviewed and no documentation of PNA. CT abdomen reporting acute cholecystitis vs pyelonephritis. Urine culture NGTD. AST 74, ALT 94, Alk phos 117, and Lipase 5 Started on Zosyn for now 12/15/18, though etiology unclear at this time. WBC trending down and pt has been afebrile since 12/15/18 16:18. Abdominal US showed gallbladder sludge as well as thickening of the gallbladder wall and possible acute cholecystitis. NM scan negative for acute cholecystitis. Pt's fever resolved. WBC trending down. while on Zosyn and DC'ed Levaquin. Discussed with general surgery saw pt in consult for acute cholecystitis. Pt is s/p lap candy 12/17/18. Repeat LFT's post op appear to be trending down. Sepsis resolved. Qualifiers: Qualified Code(s): A41.9 - Sepsis, unspecified organism (3) Leukocytosis Priority: Secondary Status: Acute Assessment and Plan: See above. Leukocytosis resolved. Pt completed Zosyn x 5 days. s/p lap candy, therefore will stop antibiotics Qualifiers: Leukocytosis type: unspecified Qualified Code(s): D72.829 - Elevated white blood cell count, unspecified (4) Acute acalculous cholecystitis Priority: Primary Status: Acute Assessment and Plan: Pt is s/p lap prakash 12/17/18. She reports her back pain has resolved and she feels much better. LFT's trended down 12/18/18. Rec out pt f/u with PCP to follow labs. DIet advanced and tolerated. F/U out pt with general surgery as rec. (5) Hyponatremia Priority: Secondary Status: Acute Assessment and Plan: Pseudohyponatremia secondary to hyperglycemia. Na 127 on admission. Na corrected. neurologically intact. (6) Nausea Priority: Secondary Status: Acute Assessment and Plan: Pt states resolved since GB removed. With associated loose stool so was initially thought to be possible gastroenteritis. Nausea likely due to gall bladder disease. Stool for c.diff ordered but pt was not able to give a sample as she did not have diarrhea. (7) Hypokalemia Priority: Secondary Status: Acute Assessment and Plan: Given potassium 40 mEq x one prior to discharge. Repeat labs 12/23/18 Hospital course: History of present illness: Kelsea aMrk is a 43 year old female with PMH type 1 diabetes presented to [facility] on 12/13/18 with complaints of neausea. She was found to be in DKA and was hospitalized for further work-up and treatment. Information obtained from chart review and patient report. Patient says she has been nauseated over the last 2-3 days. Denied ABD pain. Had 2 episodes non-bloody loose stool day of arrival. No aggravating or alleviating factors. Says she is unable to keep anything down. Reports comlnaice with insulin pump and pump is functioning correctly. Denied sick contacts. Treated for URI approx 3-4 weeks ago. Discharge discussed with: patient - Time Spent with Patient Total time spent providing and/or coordinating discharge services: Time spent: Greater than 30 minutes - Discharge Medications Prescriptions: New Ondansetron ODT [Zofran ODT] 4 mg SL Q6HR PRN 3 Days #15 tab.rapdis PRN Reason: Nausea Docusate [Colace] 100 mg PO BID 15 Days #30 capsule Ibuprofen 800 mg PO Q8H 14 Days #42 tablet Oxycodone HCl/Acetaminophen [Percocet 5-325 mg Tablet] 1 each PO Q6H PRN 7 Days #28 tablet PRN Reason: Breakthrough Pain No Action Gabapentin [Neurontin] 800 mg PO QID ALPRAZolam [Xanax 1 MG Tablet] 1 mg PO TID PRN PRN Reason: Anxiety Citalopram [CeleXA] 40 mg PO HS BuPROPion XL (24 HR) [Wellbutrin XL] 150 mg PO DAILY Insulin ASPART [NovoLOG] 0 units CONT Atorvastatin [Lipitor] 40 mg PO HS Home Medications: ALPRAZolam [Xanax 1 MG Tablet] 1 mg PO TID PRN 12/13/18 [History] Atorvastatin [Lipitor] 40 mg PO HS 12/13/18 [History] BuPROPion XL (24 HR) [Wellbutrin XL] 150 mg PO DAILY 12/13/18 [History] Citalopram [CeleXA] 40 mg PO HS 12/13/18 [History] Gabapentin [Neurontin] 800 mg PO QID 12/13/18 [History] Insulin ASPART [NovoLOG] 0 units CONT 12/13/18 [History] Docusate [Colace] 100 mg PO BID 15 Days #30 capsule 12/18/18 [Rx] Ibuprofen 800 mg PO Q8H 14 Days #42 tablet 12/18/18 [Rx] Ondansetron ODT [Zofran ODT] 4 mg SL Q6HR PRN 3 Days #15 tab.rapdis 12/18/18 [Rx] Oxycodone HCl/Acetaminophen [Percocet 5-325 mg Tablet] 1 each PO Q6H PRN 7 Days #28 tablet 12/18/18 [Rx] Allergies/Adverse Reactions: Allergy/AdvReac Type Severity Reaction Status Date / Time No Known Allergies Allergy Verified 12/13/18 08:06 Date of admission: 12/13/18 14:37 Primary care physician: Trey Duenas MD Consults: 12/15/18 12:51 Consult for Pharmacy Education [CONS] Routine Reason for Consult: DKA Call Completed: No Consult to Endocrinology [CONS] Routine Consulting Provider: [facility] Reason for Consult: DKA Call Completed: No 12/16/18 15:31 Consult to Surgery [CONS] Routine Consulting Provider: [facility] Reason for Consult: acute cholecystitis Call Completed: Yes Discharging clinician: Kelli Torres Anticipated date of discharge: 12/18/18 - Constitutional Vitals: Temp Pulse Resp BP Pulse Ox 97.6 F 73 16 119/75 95 12/18/18 11:17 12/18/18 11:17 12/18/18 11:17 12/18/18 11:17 12/18/18 11:17 General appearance: Present: A&O X 3 Exam: . - Head Head exam: Present: atraumatic, normocephalic - Eye Eye exam: Present: PERRL, conjuntiva pink, sclera anicteric Pupils: Present: PERRL - Neck Neck exam general surgery: Present: supple, trachea midline. Absent: lymphadenopathy - Respiratory Respiratory exam: Present: CTAB. Absent: accessory muscle use, rales, rhonchi, wheezes - Cardiovascular Cardiovascular exam: Present: RRR, +S1, +S2. Absent: diastolic murmur, gallop, rubs, systolic murmur - GI/Abdominal GI/Abdominal exam: Present: normal bowel sounds, soft, no peritoneal signs. Absent: distended, tenderness - Extremities Exam Extremities exam: Present: warm, radial pulses palpable and symmetrical. Absent: calf tenderness, cyanotic, pedal edema - Neurological Exam Neurological exam: Present: CN II-XII intact, oriented X3, no focal deficits. Absent: pronater drift, facial droop, speech deficit - Skin Skin exam: Present: dry, intact - Patient Status Disposition: Home, Self-Care Condition: Good Overall status at discharge: patient is back to baseline - Discharge Instructions Instructions: Laparoscopic Cholecystectomy (DC) Follow Up With: Trey Duenas MD [Primary Care Provider] - 12/25/18 2:00 pm Additional Instructions: General Surgical Discharge Instructions 1. No pushing, pulling, or lifting greater than 15 lbs for 2-4 weeks (depending upon procedure). 2. You may shower beginning today, but no tub baths, soaking, or swimming for 2 weeks. 3. You may resume driving when you are off narcotics and are safe to react in a car. 4. Take ibuprofen every 8 hours for discomfort. If this does not relieve discomfort, you may take the as needed Percocet. Take narcotics as directed. Do not take more narcotics then directed and do not share your narcotics with any other person. Do not drink alcohol while on narcotics. 5. Take stool softeners (Colace) or a water based laxative (Miralax) while taking narcotics. You may hold for loose stools. 6. Report any fevers greater than 100.5F, increase abdominal discomfort, drainage that looks like pus, increased redness or pain at the surgical site, or any vomiting. 7. Report any pain in the calves, shortness of breath, or rapid heartbeat. 8. Follow-up in the office as directed. 9. If you were prescribed antibiotics, do not stop them without talking to your provider. - Diet and Activity Activity: increase activity as tolerated Diet: advance to your usual diet, diabetic diet
== END 2018-12-18 14:00 | disposition home or self-care (01) | DRG 853 ==
LOC: EMEROOARM 07:47 → 2NNU 14:37 → 3BNU 12-17 12:49
PROVIDERS: ADMIT Internal Medicine; ATTEND Internal Medicine